=== PATIENT | female | born 1930 | race Caucasian/White ===

== ENCOUNTER → 2017-03-18 | Day surgery (SDC) | payer OTHER, MEDICARE ==
[2017-02-26 09:57] VITALS: Ht 160 cm; Wt 95.5 kg
[~2017-03-18] VITALS: Ht 160 cm; Wt 95.5 kg
[~2017-03-18] MED LIST: 500ML BSS 0.3ML EPI 1:1000PF IRRIG ONE; ACETAMINOPHEN 325 MG TAB PO PRN; AMIO200T4 PO; AMLO-110 PO; AMVISC PLUS 0.8ML SYRINGE INT OCU ONE; APR25 PO; ASPCH81X PO; ATOR-22 PO; ATRIN INH; ATROPINE SULFATE 0.1 MG/ML 5ML SYR IV PRN; CHOL100010 PO; DENO60SO INJ; EpHEDrine SULFATE INJ 50 MG/ML AMP IV PRN; EpINEphrine INJ 1MG/ML AMP 1 MG/ML AMP ONE; FERR1TAB13 PO; LACTATED RINGER'S 1000ML 500 ML IV SCH; LEVO50TA6 PO; LIDOCAINE 3.5% OPH GEL PER APPLICATION CHARGE ONE; LIDOCAINE HCL 1% MPF 2 ML VIAL ONE; LORA-741 PO; LPR50X PO; MIDAZOLAM HCL 1 MG/ML 2ML VIAL ONE; NITR0.4S UT; OCUCOAT 1 ML SOLN IO ONE; ONDANSETRON INJ 2 MG/ML 2 ML VIAL IV PRN; POTA10TA PO; POVIDONE-IODINE OP SOLN 30 ML BTL ONE; PRIM50TA29 PO; PRLSR20 PO; PROPARACAINE 0.5% OP SOLN PER DROP CHARGE OPL SCH; SLWMEC PO; TOBRAMYCIN/DEXAMETHASONE OPH OINT PER APPLN CHARGE ONE; TOLT1TAB17 PO; [UNRECOGNIZED DRUG - CODE] PO
[2017-03-18] MEDS: PHENYLEPHRINE HCL 2.5% OP SOLN PER DROP CHARGE OPL SCH ×2 (09:47→09:52)
[2017-03-18] MEDS: TROPICAMIDE 1% OP SOLN PER DROP CHARGE OPL SCH ×2 (09:48→09:53)
[2017-03-18] MEDS: CYCLOPENTOLATE HCL 1% OP SOLN PER DROP CHARGE OPL SCH ×2 (09:49→09:54)
[2017-03-18] MEDS: KETOROLAC 0.5% OP SOLN PER DROP CHARGE OPL SCH ×2 (09:50→09:55)
[2017-03-18] MEDS: GATIFLOXACIN OP SOLN PER DROP CHARGE OPL SCH ×2 (09:51→10:05)
--- NOTE | 2017-03-18 10:15 | History & Physical Bridge - [place] ---
H&P Re-Evaluation Bridge Note: I have examined the patient, reviewed the History & Physical and in the interval since the performance of the History & Physical I have noted the following changes of clinical significance: No changes noted
--- NOTE | 2017-03-18 10:44 | Discharge Instructions-SurgCtr ---
Discharge Instructions Date of Service Mar 18, 2017. Visit Reason for Visit: Cataract Left Eye Discharge Discharge Diagnosis / Problem: cataract Discharge Goals Goal(s): Improve function Activity Recommendations Activity Limitations: per Instructions/Follow-up section Anesthesia . Post Anesthesia Instructions: If you have had General Anesthesia or IV Sedation: * Do not drive today. * Resume driving when surgeon permits. * Do not make important decisions or sign legal documents today. * Call surgeon for: 1. Temperature elevations greater than 101 degrees F. 2. Uncontrollable pain. 3. Excessive bleeding. 4. Persistent nausea and vomiting. 5. Medication intolerance (nausea, vomiting or rash). * For nausea and vomiting use only clear liquids such as: tea, soda, bouillon until nausea subsides, then gradually increase diet as tolerated. * If you have any concerns or questions, call your surgeon's office. If physician is unavailable and it is an emergency, call 911 or go to the nearest emergency room. . Instructions / Follow-Up Instructions / Follow-Up ACTIVITY RECOMMENDATIONS: * No strenuous lifting, jogging or running for 4 days * No swimming or yard work for 1 week. * Limited bending is permitted, such as putting on shoes. RETURN TO SCHOOL/WORK: No work until seen by physician in office. MEDICATIONS: Resume previous medications unless instructed otherwise by your surgeon. This includes eye drops for glaucoma. Zymaxid/Gatifloxacin (guerrero cap) - one drop every 2 hours until bedtime Nevanac/Ilevro/Prolensa/Ketorolac (tamayo cap) - one drop every 4 hours until bedtime Prednisolone (white/pink cap, SHAKE WELL) - one drop every 2 hours until bedtime Starting tomorrow - all 3 drops every 4 hours until seen in the office Optive drops - as needed for discomfort SPECIAL CARE INSTRUCTIONS: * Wear eyeshield when sleeping, for four nights. * You may wear your own glasses or sunglasses while awake. * You may read or watch TV * You may shower and wash your face, but be gentle around the eye and pat dry. * Blurry vision and mild irritation are normal. * Call office if pain is more severe or vision becomes dark at . FOLLOW UP VISIT: Follow-up with Dr Campos tomorrow. Diet Recommendations Home Diet: resume previous diet Procedures Procedures Performed: Cataract Phacoemulsification With Intraocular Lens Implant Pending Studies Studies pending at discharge: no Medical Emergencies . Who to Call and When: Medical Emergencies: If at any time you feel your situation is an emergency, please call 911 immediately. . Non-Emergent Contact Non-Emergency issues call your: Car Shakeout Operator . . "Provider Documentation" section prepared by Corey Campos. .
--- NOTE | 2017-03-18 10:45 | [facility] Operative Report ---
Operative Report Date of Service Mar 18, 2017. Operative Report 1. PREOPERATIVE DIAGNOSIS: Cataract of the left eye. 2. POSTOPERATIVE DIAGNOSIS: Same. 3. PROCEDURE: Phacoemulsification with intraocular lens implantation of the left eye. SURGEON: Dr. Corey Campos. ANESTHESIA: Topical Lidocaine gel, 1% Non- Preserved intracameral Lidocaine, and monitored intravenous sedation. INDICATIONS FOR THE PROCEDURE: The patient is a 87 - year-old female with a history of cataract of the left eye causing significant visual impairment. The details of the proposed procedure were explained to the patient who asked appropriate questions and following discussion of all risks, benefits and alternatives agreed to have the procedure done. 4. OPERATION AND FINDINGS: DESCRIPTION OF PROCEDURE: After informed consent was obtained, the patient was brought to the Operating Room at the [facility]. The patient was placed in a supine position and then the left eye was prepped and draped in the usual sterile fashion for intraocular surgery. A drop of topical Lidocaine gel was placed in the operative eye. A wire lid speculum was then placed in the fornices. A corneal paracentesis was then created temporally. The Non-Preserved Lidocaine was then instilled into the anterior chamber. The anterior chamber was then pressurized with viscoelastic. A 2.0 mm clear corneal incision was then created temporally. A cystotome was inserted into the anterior chamber and used to create a tear in the anterior lens capsule. This capsular tear was then used to create a small flap and the flap was dragged in a counterclockwise direction in order to create a continuous curvilinear capsulorrhexis. Hydrodissection was accomplished with balanced salt solution. Phacoemulsification of the lens nucleus was then performed in a standard [id number] technique. The phaco time was 22 seconds with an average power of 12 %. The remaining cortical material was removed using irrigation aspiration. The capsular bag was then filled with viscoelastic. A Bausch & Lomb MI60L +21.5 diopters lens was then loaded into the injector and injected into the capsular bag. The remaining viscoelastic was removed with the irrigation aspiration handpiece. The wound was hydrated and then checked and found to be watertight. The intraocular pressure was checked and found to be adequate. The wire lid speculum was removed and the patient's face was cleaned and dried. TobraDex ointment was placed in the inferior fornix. The patient was discharged to the Recovery Room having tolerated the procedure well. There were no complications. The patient will be seen tomorrow in the office for follow-up. I attest to the content of the Intraoperative Record and any orders documented therein. Any exceptions are noted below.
[2017-03-18 10:48] VITALS: TEMP 36.4
[2017-03-18 10:58] VITALS: BP 156/69; PULSE 59; O2SAT 97
--- NOTE | 2017-03-18 11:13 | Anesthesia Progress Nt - [facility] ---
Anesthesia Post Op Note Date & Time Mar 18, 2017 at 11:12 Vital Signs Pain Intensity: 0 Vital Signs Past 12 Hours Date Time Temp Pulse Resp B/P (MAP) Pulse Ox O2 Delivery O2 Flow Rate FiO2 03/18/17 10:58 59 16 156/69 (98) 97 Room Air 03/18/17 10:48 36.4 56 16 145/62 (89) 99 Room Air 03/18/17 09:41 36.5 58 22 172/80 (110) 95 Room Air Notes Mental Status: alert / awake / arousable, participated in evaluation Pt Amnestic to Procedure: Yes Nausea / Vomiting: adequately controlled Pain: adequately controlled Airway Patency, RR, SpO2: stable & adequate BP & HR: stable & adequate Hydration State: stable & adequate Anesthetic Complications: no major complications apparent
== END | disposition home or self-care (01) ==
LOC: X.SURG 09:25
PROVIDERS: ATTEND Ophthalmology
DX: H26.9 Unspecified cataract (principal); N18.3 Chronic kidney disease, stage 3 (moderate); J45.30 Mild persistent asthma, uncomplicated; E55.9 Vitamin D deficiency, unspecified; E03.9 Hypothyroidism, unspecified; I10 Essential (primary) hypertension; M15.0 Primary generalized (osteo)arthritis

== ENCOUNTER → 2017-04-22 | Day surgery (SDC) | payer OTHER, MEDICARE ==
[2017-03-27 12:17] VITALS: Ht 160 cm; Wt 95.5 kg
[~2017-04-22] VITALS: Ht 160 cm; Wt 95.5 kg
[~2017-04-22] MED LIST changes: +BSS FLUSH ONE; -ONDANSETRON INJ 2 MG/ML 2 ML VIAL IV PRN; -PROPARACAINE 0.5% OP SOLN PER DROP CHARGE OPL SCH; +PROPARACAINE 0.5% OP SOLN PER DROP CHARGE OPR SCH; +TOLT1TAB PO; -TOLT1TAB17 PO
[2017-04-22] MEDS: PHENYLEPHRINE HCL 2.5% OP SOLN PER DROP CHARGE OPR SCH ×2 (07:15→07:20)
[2017-04-22] MEDS: TROPICAMIDE 1% OP SOLN PER DROP CHARGE OPR SCH ×2 (07:16→07:21)
[2017-04-22] MEDS: CYCLOPENTOLATE HCL 1% OP SOLN PER DROP CHARGE OPR SCH ×2 (07:17→07:22)
[2017-04-22] MEDS: KETOROLAC 0.5% OP SOLN PER DROP CHARGE OPR SCH ×2 (07:18→07:23)
[2017-04-22] MEDS: GATIFLOXACIN OP SOLN PER DROP CHARGE OPR SCH ×2 (07:19→07:29)
--- NOTE | 2017-04-22 08:07 | Discharge Instructions-SurgCtr ---
Discharge Instructions Date of Service Apr 22, 2017. Visit Reason for Visit: Right Cataract Discharge Discharge Diagnosis / Problem: cataract Discharge Goals Goal(s): Improve function Activity Recommendations Activity Limitations: per Instructions/Follow-up section Anesthesia . Post Anesthesia Instructions: If you have had General Anesthesia or IV Sedation: * Do not drive today. * Resume driving when surgeon permits. * Do not make important decisions or sign legal documents today. * Call surgeon for: 1. Temperature elevations greater than 101 degrees F. 2. Uncontrollable pain. 3. Excessive bleeding. 4. Persistent nausea and vomiting. 5. Medication intolerance (nausea, vomiting or rash). * For nausea and vomiting use only clear liquids such as: tea, soda, bouillon until nausea subsides, then gradually increase diet as tolerated. * If you have any concerns or questions, call your surgeon's office. If physician is unavailable and it is an emergency, call 911 or go to the nearest emergency room. . Instructions / Follow-Up Instructions / Follow-Up ACTIVITY RECOMMENDATIONS: * No strenuous lifting, jogging or running for 4 days * No swimming or yard work for 1 week. * Limited bending is permitted, such as putting on shoes. RETURN TO SCHOOL/WORK: No work until seen by physician in office. MEDICATIONS: Resume previous medications unless instructed otherwise by your surgeon. This includes eye drops for glaucoma. Zymaxid/Gatifloxacin (guerrero cap) - one drop every 2 hours until bedtime Nevanac/Ilevro/Prolensa/Ketorolac (tamayo cap) - one drop every 4 hours until bedtime Prednisolone/Durezol (white/pink cap, SHAKE WELL) - one drop every 2 hours until bedtime Starting tomorrow - all 3 drops every 4 hours until seen in the office Optive drops - as needed for discomfort SPECIAL CARE INSTRUCTIONS: * Wear eyeshield when sleeping, for four nights. * You may wear your own glasses or sunglasses while awake. * You may read or watch TV * You may shower and wash your face, but be gentle around the eye and pat dry. * Blurry vision and mild irritation are normal. * Call office if pain is more severe or vision becomes dark at . FOLLOW UP VISIT: Follow-up with Dr Campos tomorrow. Diet Recommendations Home Diet: resume previous diet Procedures Procedures Performed: Right Cataract Phacoemulsification With Intraocular Lens Implant Pending Studies Studies pending at discharge: no Medical Emergencies . Who to Call and When: Medical Emergencies: If at any time you feel your situation is an emergency, please call 911 immediately. . Non-Emergent Contact Non-Emergency issues call your: Meal Temperer . . "Provider Documentation" section prepared by Corey Campos. .
--- NOTE | 2017-04-22 08:07 | [facility] Operative Report ---
Operative Report Date of Service Apr 22, 2017. Operative Report 1. PREOPERATIVE DIAGNOSIS: Cataract of the right eye. 2. POSTOPERATIVE DIAGNOSIS: Same. 3. PROCEDURE: Phacoemulsification with intraocular lens implantation of the right eye. SURGEON: Dr. Corey Campos. ANESTHESIA: Topical Lidocaine gel, 1% Non- Preserved intracameral Lidocaine, and monitored intravenous sedation. INDICATIONS FOR THE PROCEDURE: The patient is a 87 - year-old female with a history of cataract of the right eye causing significant visual impairment. The details of the proposed procedure were explained to the patient who asked appropriate questions and following discussion of all risks, benefits and alternatives agreed to have the procedure done. 4. OPERATION AND FINDINGS: DESCRIPTION OF PROCEDURE: After informed consent was obtained, the patient was brought to the Operating Room at the [facility]. The patient was placed in a supine position and then the right eye was prepped and draped in the usual sterile fashion for intraocular surgery. A drop of topical Lidocaine gel was placed in the operative eye. A wire lid speculum was then placed in the fornices. A corneal paracentesis was then created temporally. The Non-Preserved Lidocaine was then instilled into the anterior chamber. The anterior chamber was then pressurized with viscoelastic. A 2.0 mm clear corneal incision was then created temporally. A cystotome was inserted into the anterior chamber and used to create a tear in the anterior lens capsule. This capsular tear was then used to create a small flap and the flap was dragged in a counterclockwise direction in order to create a continuous curvilinear capsulorrhexis. Hydrodissection was accomplished with balanced salt solution. Phacoemulsification of the lens nucleus was then performed in a standard [id number] technique. The phaco time was 26 seconds with an average power of 12 %. The remaining cortical material was removed using irrigation aspiration. The capsular bag was then filled with viscoelastic. A Bausch & Lomb MI60L +21.05 diopters lens was then loaded into the injector and injected into the capsular bag. The remaining viscoelastic was removed with the irrigation aspiration handpiece. The wound was hydrated and then checked and found to be watertight. The intraocular pressure was checked and found to be adequate. The wire lid speculum was removed and the patient's face was cleaned and dried. TobraDex ointment was placed in the inferior fornix. The patient was discharged to the Recovery Room having tolerated the procedure well. There were no complications. The patient will be seen tomorrow in the office for follow-up. I attest to the content of the Intraoperative Record and any orders documented therein. Any exceptions are noted below.
[2017-04-22 08:08] VITALS: TEMP 37
[2017-04-22 08:34] VITALS: BP 155/71; PULSE 55; O2SAT 96
--- NOTE | 2017-04-22 08:36 | Anesthesia Progress Nt - [facility] ---
Anesthesia Post Op Note Date & Time Apr 22, 2017 at 08:36 Vital Signs Pain Intensity: 0 Vital Signs Past 12 Hours Date Time Temp Pulse Resp B/P (MAP) Pulse Ox O2 Delivery O2 Flow Rate FiO2 04/22/17 08:34 55 18 155/71 (99) 96 Room Air 04/22/17 08:08 37.0 56 16 152/72 (98) 98 Room Air 04/22/17 07:07 36.9 62 20 168/78 (108) 95 Room Air Notes Mental Status: alert / awake / arousable, participated in evaluation Pt Amnestic to Procedure: Yes Nausea / Vomiting: adequately controlled Pain: adequately controlled Airway Patency, RR, SpO2: stable & adequate BP & HR: stable & adequate Hydration State: stable & adequate Anesthetic Complications: no major complications apparent
== END | disposition home or self-care (01) ==
LOC: X.SURG 06:45
PROVIDERS: ATTEND Ophthalmology
DX: H26.9 Unspecified cataract (principal); E03.9 Hypothyroidism, unspecified; I25.10 Atherosclerotic heart disease of native coronary artery without angina pectoris; N18.9 Chronic kidney disease, unspecified; I12.9 Hypertensive chronic kidney disease with stage 1 through stage 4 chronic kidney disease, or unspecified chronic kidney disease; Z98.61 Coronary angioplasty status

== ENCOUNTER 2017-10-07 12:36 | Observation (INO) | payer OTHER, MEDICARE ==
[~2017-10-07] VITALS: Ht 162.6 cm; Wt 95.4 kg
[~2017-10-07 12:36] MED LIST changes: -500ML BSS 0.3ML EPI 1:1000PF IRRIG ONE; -ACETAMINOPHEN 325 MG TAB PO PRN; -AMLO-110 PO; +AMLO5TAB3 PO; -AMVISC PLUS 0.8ML SYRINGE INT OCU ONE; -ATROPINE SULFATE 0.1 MG/ML 5ML SYR IV PRN; -BSS FLUSH ONE; -EpHEDrine SULFATE INJ 50 MG/ML AMP IV PRN; -EpINEphrine INJ 1MG/ML AMP 1 MG/ML AMP ONE; -LACTATED RINGER'S 1000ML 500 ML IV SCH; -LIDOCAINE 3.5% OPH GEL PER APPLICATION CHARGE ONE; -LIDOCAINE HCL 1% MPF 2 ML VIAL ONE; -MIDAZOLAM HCL 1 MG/ML 2ML VIAL ONE; -OCUCOAT 1 ML SOLN IO ONE; -POVIDONE-IODINE OP SOLN 30 ML BTL ONE; -PROPARACAINE 0.5% OP SOLN PER DROP CHARGE OPR SCH; -TOBRAMYCIN/DEXAMETHASONE OPH OINT PER APPLN CHARGE ONE; -TOLT1TAB PO; +TOLT1TAB17 PO
[2017-10-07] MEDS ORDERED: ONDANSETRON INJ 2 MG/ML 2 ML VIAL IV STA (12:56)
[2017-10-07] MEDS ORDERED: NITROGLYCERIN OINT 2% 1GM PACKET EXT STA (12:56)
[2017-10-07] MEDS ORDERED: ASPIRIN 81 MG CHEW PO STA (12:56)
--- NOTE | 2017-10-07 13:14 | EMERGENCY ROOM VISIT NOTE ---
History Report prepared by Satinder: Michelle Mayorga Under the Supervision of: Dr. Kiran Crane M.D. 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 She notes the pain radiates to her jaw. She notes the chest pressure is better when she sits up and worsens when she lies down. She currently rates her discomfort a 10/10 in severity. She notes nausea, dry heaving, vomiting, loss of appetite, and headache. She notes the nausea and dry heaving began two days ago. She notes vomiting last night. She notes a persistent headache for two weeks. She denies any fevers or shortness of breath. She has a history of PE, small bowel obstruction, and CAD. She used NTG yesterday with no relief. She currently takes baby aspirin daily. She notes she takes her medications regularly and on schedule. Source of History: patient Onset: two days FRUIT WORKER Position: chest Symptom Intensity: 10/10 Quality: pressure Timing: constant Modifying Factors (Worsening): other (lying down) Modifying Factors (Relieving): other (sits up) Associated Symptoms: + headache, + nausea, + vomiting, No fevers, No SOB Note: She notes dry heaving and loss of appetite. Review of Systems See HPI for pertinent positives & negatives. A total of 10 systems reviewed and were otherwise negative. Past Medical & Surgical Medical Problems: (1) Asthma (2) CAD S/P percutaneous coronary angioplasty (3) Gastroparesis (4) GERD (gastroesophageal reflux disease) (5) History of colonic diverticulitis (6) History of herpes zoster (7) Hormone replacement therapy (postmenopausal) (8) HTN (hypertension) (9) Irritable bowel syndrome (10) Osteoarthritis (11) Osteoporosis (12) Paroxysmal atrial fibrillation (13) Rotator cuff tear arthropathy Surgical Problems: (1) History of appendectomy (2) History of bowel resection (3) History of total left knee replacement (4) History of vein stripping (5) Hx of cholecystectomy (6) S/P oophorectomy (7) S/P rotator cuff repair (8) Status post coronary artery stent placement (9) Status post exploratory laparotomy Family History Cancer MOTHER (Stomach CA) SISTER (Lymphoma) FH: multiple sclerosis MOTHER Heart disease FATHER Social History Smoking Status: Never Smoker Alcohol Use: none Marital Status: Housing Status: lives alone Occupation Status: retired Current/Historical Medications Scheduled Amiodarone Hcl (Cordarone), 200 MG PO QAM Amlodipine (Norvasc), 5 MG PO QAM Aspirin (Aspirin Chewable), 81 MG PO QAM Atorvastatin (Lipitor), 20 MG PO QPM Cholecalciferol (Vitamin D), 2 TAB PO QAM Cyanocobalamin (Vitamin B-12), 1,000 MCG PO DAILY Denosumab (Prolia), 1 DOSE INJ [id number] Ferrous Sulfate (Kp Ferrous Sulfate), 1 TAB PO DAILY Hydralazine Hcl (Apresoline), 25 MG PO BID Ipratropium [place] (Atrovent Hfa), 2 PUFFS INH QID Levothyroxine Sodium (Synthroid), 75 MCG PO DAILY Lorazepam (Ativan), 0.5 MG PO BID Magnesium Chloride (Slow-Mag Tab), 64 MG PO QAM Metoprolol Tartrate (Metoprolol Tartrate), 1 TAB PO BID Nitroglycerin (Nitrostat), 0.4 MG UT PRN Omeprazole (Prilosec), 20 MG PO BID Primidone (Mysoline), 50 MG PO QAM Tolterodine Tartrate (Detrol), 1 MG PO BID Scheduled PRN Cholestyramine (Questran Light), 1 DOSE PO DAILY PRN for Constipation Hydrocodone/Acetaminophen 5MG/325MG ([place] 5MG/325MG), 1 TABLET PO Q8 PRN for Pain Tramadol (Ultram), 50 MG PO TID PRN for Pain Allergies Coded Allergies: Hydrochlorothiazide (Verified Allergy, Unknown, UNKNOWN, 10/07/17) Latex (Verified Allergy, Unknown, rash, red, 10/07/17) Nickel (Verified Allergy, Unknown, local skin irritation, 10/07/17) Physical Exam Vital Signs Date Time Temp Pulse Resp B/P (MAP) Pulse Ox O2 Delivery O2 Flow Rate FiO2 10/07/17 14:27 58 18 138/67 93 Room Air 10/07/17 13:16 97 Room Air 10/07/17 13:01 61 10/07/17 12:42 36.7 55 18 190/83 97 Room Air Physical Exam GENERAL: Patient is in no acute distress. HEENT: No acute trauma, normocephalic atraumatic, mucous membranes moist, no nasal congestion, no scleral icterus. NECK: No stridor, no adenopathy, no meningismus, trachea is midline. CHEST: Tender over sternal chest wall. LUNGS: Clear to auscultation bilaterally, no wheeze, no rhonchi, breath sounds equal. HEART: Mildly bradycardic, regular rhythm, and subtle systolic murmur. ABDOMEN: Soft, tender in epigastrium, bowel sounds positive, no hernias, no peritonitis. EXTREMITIES: No cyanosis or edema, full range of motion of all the joints without pain or difficulty, no signs for acute trauma. NEUROLOGIC: Oriented x 3, no acute motor or sensory deficits, no focal weakness. SKIN: No rash, no jaundice, no diaphoresis. Medical Decision & Procedures ER Provider Diagnostic Interpretation: Radiology results as stated below per my review and radiologist interpretation: CHEST ONE VIEW PORTABLE CLINICAL HISTORY: CHEST PAIN dyspnea COMPARISON STUDY: 11/01/2015 FINDINGS: Mild stable cardiomegaly. Chronic colonic atelectasis both lung bases. Potential subsegmental atelectasis left lung base. Lungs otherwise appear clear. Postoperative changes right shoulder considered stable. IMPRESSION: Subsegmental atelectasis left base. Chronic change. Chest CT: IMPRESSION: 1. No acute pulmonary emboli. Small chronic pulmonary embolus within a segmental branch to the lingula which was present on CT of November 01, 2015. 2. No acute intrathoracic findings. 3. Moderate cardiomegaly and extensive coronary artery calcification. 4. Moderate sized hiatal hernia. The above report was generated using voice recognition software. It may contain grammatical, syntax or spelling errors. Electronically signed by: Marc Warren M.D. 10/07/2017 1:26 PM Dictated Date/Time: 10/07/2017 1:26 PM ABDOMINAL ULTRASOUND, RIGHT UPPER QUADRANT HISTORY: Epigastric abdominal pain.. COMPARISON: Abdomen and pelvis CT 11/01/2015. FINDINGS: Pancreas: The pancreatic tail is obscured by overlying bowel gas. The remaining portions of the pancreas are within normal limits. Liver: There are 2 cysts within the left hepatic lobe the largest measuring 1.4 cm. These remain unchanged. Gallbladder: The gallbladder is surgically absent. CBD: 7 mm. This is within normal limits. Right kidney: No hydronephrosis. IMPRESSION: No significant abnormality identified within the right upper quadrant. Prior cholecystectomy. Electronically signed by: Ezio Mahajan M.D. 10/07/2017 2:13 PM Dictated Date/Time: 10/07/2017 2:07 PM Laboratory Results 10/07/17 13:25 10/07/17 13:25 Test 10/07/17 13:25 Red Blood Count 4.13 M/uL (4.2-5.4) Mean Corpuscular Volume 96.6 fL (80-100) Mean Corpuscular Hemoglobin 31.5 pg (25-34) Mean Corpuscular Hemoglobin Concent 32.6 g/dl (32-36) RDW Standard Deviation 53.5 fL (36.4-46.3) RDW Coefficient of Variation 15.2 % (11.5-14.5) Mean Platelet Volume 11.8 fL (7.4-10.4) Prothrombin Time 10.4 SECONDS (9.0-12.0) Prothromb Time International Ratio 1.0 (0.9-1.1) Activated Partial Thromboplast Time 25.8 SECONDS (21.0-31.0) Partial Thromboplastin Ratio 1.0 Anion Gap 4.0 mmol/L (3-11) Est Creatinine Clear Calc Drug Dose 50.0 ml/min Estimated GFR () 65.0 Estimated GFR (Non- 56.0 BUN/Creatinine Ratio 15.9 (10-20) Calcium Level 8.8 mg/dl (8.5-10.1) Total Bilirubin 0.4 mg/dl (0.2-1) Aspartate Amino Transf (AST/SGOT) 26 U/L (15-37) Alanine Aminotransferase (ALT/SGPT) 30 U/L (12-78) Alkaline Phosphatase 97 U/L (45-117) Troponin I < 0.015 ng/ml (0-0.045) Total Protein 7.4 gm/dl (6.4-8.2) Albumin 3.3 gm/dl (3.4-5.0) Globulin 4.1 gm/dl (2.5-4.0) Albumin/Globulin Ratio 0.8 (0.9-2) Lipase 100 U/L (73-393) Laboratory results reviewed by me. Medications Administered Medications (Trade) Dose Ordered Sig/Brdaley Route Start Time Stop Time Status Last Admin Dose Admin Ondansetron HCl (Zofran Inj) 4 mg NOW STAT IV 10/07/17 12:56 10/07/17 13:06 DC 10/07/17 13:26 4 MG Nitroglycerin (Nitroglycerin 2% Oint) 1 inch NOW STAT EXT 10/07/17 12:56 10/07/17 13:06 DC 10/07/17 13:26 1 INCH Aspirin (Aspirin Chew) 324 mg NOW STAT PO 10/07/17 12:56 10/07/17 13:06 DC 10/07/17 13:26 324 MG ECG Indication: chest pain Rate (beats per minute): 59 Rhythm: sinus bradycardia Findings: no acute ischemic change, no ectopy, other (LVH) ED Course 1256: The patient was evaluated in room C11B. A complete history and physical exam was performed. 1256: Ordered Aspirin 324 mg PO, Nitroglycerin 1 inch SL, and Zofran 4 mg IV 1420: I reassessed the patient at this time. She is feeling better and resting comfortably. 1628: I spoke with the patient and family. The on-call hospitalist was consulted. Medical Decision The patient is a 87 year old female who presents to the ED with complaints of chest pressure. Differential diagnoses considered include cardiac ischemia, pancreatitis, gall bladder disease, PNX, PNA aortic dissection, PE, and UT. There is no leukocytosis or concerning anemia. No significant electrolyte abnormality, kidney failure, hepatitis or pancreatitis. There is no coagulopathy. Chest x-ray shows no mediastinal widening or pneumothorax, there is no pneumonia. There was some atelectasis at the left base. EKG shows a sinus bradycardia with LVH, no acute ischemia. Cardiac enzyme testing times one is not consistent with acute cardiac injury. Gallbladder ultrasound does not show evidence for gallstones or acute cholecystitis. Chest CT shows a chronic PE, no acute PE, there is a hiatal hernia noted, no evidence for aortic dissection. The patient received Nitropaste, IV saline, IV Zofran and oral aspirin. She is feeling markedly improved. The patient presents with chest pressure and pain going to the jaw and into her back. She is improved with nitroglycerin and aspirin. I think a hospital stay for further cardiac workup is warranted. I did speak to the patient and case management. The on-call hospitalist was consulted. Of note, some of the patient's pain may be musculoskeletal as it does seem somewhat reproducible. One would not expect her reproducible pain to improve though with nitroglycerin and aspirin. Medication Reconcilliation Current Medication List: was personally reviewed by me Blood Pressure Screening Patient's blood pressure: Elevated blood pressure Blood pressure disposition: Referred to PCP Impression Primary Impression: Precordial chest pain Scribe Attestation The scribe's documentation has been prepared under my direction and personally reviewed by me in its entirety. I confirm that the note above accurately reflects all work, treatment, procedures, and medical decision making performed by me. Departure Information Dispostion Being Evaluated By Hospitalist Referrals Marc Hoang M.D. (PCP) Patient Instructions My [facility]
--- NOTE | 2017-10-07 13:28 | DIAGNOSTIC IMAGING REPORT ---
CHEST ONE VIEW PORTABLE CLINICAL HISTORY: CHEST PAIN dyspnea COMPARISON STUDY: 11/01/2015 FINDINGS: Mild stable cardiomegaly. Chronic colonic atelectasis both lung bases. Potential subsegmental atelectasis left lung base. Lungs otherwise appear clear. Postoperative changes right shoulder considered stable. IMPRESSION: Subsegmental atelectasis left base. Chronic change. The above report was generated using voice recognition software. It may contain grammatical, syntax or spelling errors. Electronically signed by: Marc Warren M.D. 10/07/2017 1:26 PM Dictated Date/Time: 10/07/2017 1:26 PM
[2017-10-07] MEDS ORDERED: LEVO75TA PO (13:50)
[2017-10-07] MEDS ORDERED: TRAM-10 PO (13:50)
[2017-10-07] MEDS ORDERED: HYDR-5688 PO (13:50)
[2017-10-07] MEDS ORDERED: CYAN10005 PO (13:50)
[2017-10-07 14:11] LABS: PTT PATIENT 25.8 SECONDS (21.0-31.0)
--- NOTE | 2017-10-07 14:15 | DIAGNOSTIC IMAGING REPORT ---
ABDOMINAL ULTRASOUND, RIGHT UPPER QUADRANT HISTORY: Epigastric abdominal pain.. COMPARISON: Abdomen and pelvis CT 11/01/2015. FINDINGS: Pancreas: The pancreatic tail is obscured by overlying bowel gas. The remaining portions of the pancreas are within normal limits. Liver: There are 2 cysts within the left hepatic lobe the largest measuring 1.4 cm. These remain unchanged. Gallbladder: The gallbladder is surgically absent. CBD: 7 mm. This is within normal limits. Right kidney: No hydronephrosis. IMPRESSION: No significant abnormality identified within the right upper quadrant. Prior cholecystectomy. Electronically signed by: Ezio Mahajan M.D. 10/07/2017 2:13 PM Dictated Date/Time: 10/07/2017 2:07 PM
[2017-10-07 14:21] LABS: HEMATOCRIT 39.9 % (37-47); MEAN CELL VOLUME 96.6 fL (80-100); MEAN CORPUSCULAR HEMOGLOBIN 31.5 pg (25-34); MEAN CORPUSCULAR HGB CONC 32.6 g/dl (32-36); MEAN PLATELET VOLUME 11.8 fL (7.4-10.4); PLATELET COUNT 215 K/uL (130-400); RED CELL DISTRIBUTION WIDTH CV 15.2 % (11.5-14.5); RED CELL DISTRIBUTION WIDTH SD 53.5 fL (36.4-46.3); WHITE BLOOD COUNT 4.82 K/uL (4.8-10.8)
[2017-10-07 14:22] LABS: ALBUMIN 3.3 gm/dl (3.4-5.0); ALT/SGPT 30 U/L (12-78); AST/SGOT 26 U/L (15-37); BLOOD UREA NITROGEN 15 mg/dl (7-18); CALCIUM 8.8 mg/dl (8.5-10.1); CARBON DIOXIDE 27 mmol/L (21-32); CREATININE 0.93 mg/dl (0.60-1.20); GLUCOSE 97 mg/dl (70-99); LIPASE 100 U/L (73-393); POTASSIUM 4.2 mmol/L (3.5-5.1); SODIUM 137 mmol/L (136-145)
[2017-10-07 14:27] LABS: ALKALINE PHOSPHATASE 97 U/L (45-117); TOTAL PROTEIN 7.4 gm/dl (6.4-8.2)
[2017-10-07] MEDS ORDERED: OPTIRAY 320 IV PRN (14:45)
--- NOTE | 2017-10-07 16:21 | DIAGNOSTIC IMAGING REPORT ---
CT ANGIOGRAPHY OF THE CHEST, PULMONARY EMBOLUS PROTOCOL CLINICAL HISTORY: Chest pain. COMPARISON STUDY: Chest CT November 01, 2015 and chest radiograph October 07, 2017. TECHNIQUE: Following IV administration of 92 mL of [id number]-320, helical axial images of the chest were obtained utilizing the pulmonary embolus protocol. Maximal intensity projections and sagittal and coronal reformats were viewed on an independent 3D workstation. IV contrast was administered without complication. A dose lowering technique was utilized adhering to the principles of ALARA. CT DOSE: 378.97 mGy.cm FINDINGS: There is a linear filling defect within a segmental branch to the lingula. In retrospect, this was present on exam of November 01, 2015. This suggests a small chronic pulmonary embolus. No additional pulmonary emboli are identified. The heart is moderately enlarged. There is extensive coronary artery calcification. There is no pericardial effusion. No enlarged thoracic lymph nodes are present. Central airways are patent. There is no consolidation to suggest pneumonia. Lower lobe, right middle lobe and lingular opacity suggest atelectasis. There is no pneumothorax or pleural effusion. There are no suspicious pulmonary nodules. Calcified granuloma within the right lower lobe. IMPRESSION: 1. No acute pulmonary emboli. Small chronic pulmonary embolus within a segmental branch to the lingula which was present on CT of November 01, 2015. 2. No acute intrathoracic findings. 3. Moderate cardiomegaly and extensive coronary artery calcification. 4. Moderate sized hiatal hernia. Electronically signed by: Igor Porras M.D. 10/07/2017 4:19 PM Dictated Date/Time: 10/07/2017 4:09 PM
[2017-10-07] MEDS ORDERED: ACETAMINOPHEN 325 MG TAB PO PRN (17:15)
[2017-10-07] MEDS ORDERED: ONDANSETRON INJ 2 MG/ML 2 ML VIAL IV PRN (17:15)
[2017-10-07 17:34] VITALS: O2SAT 93; Ht 162.6 cm; Wt 95.4 kg
--- NOTE | 2017-10-07 17:34 | NUR ---
A/ID: 87 year old female in ED. c/o pain between shoulder blades-03/22. To be medicated in ED, RN notified of pain. Possible admission/observation. Patient history of angio/stent. Admission Assessment done. Code Word/Fall Agreement reviewed with patient and daughter, and completed. Continued care in ED by BHARGAV Link.
[2017-10-07] MEDS ORDERED: CHOL4POW11 PO (17:38)
[2017-10-07] MEDS ORDERED: ALUMINUM/MAGNESIUM/SIMETH (MAALOX MAX) 30 ML UDC PO PRN (17:45)
--- NOTE | 2017-10-07 17:55 | History and Physical ---
History & Physical Date & Time of Service: Oct 07, 2017 at 17:49 Chief Complaint: Chest Pain;Headache Primary Care Physician: Marc Hoang M.D. History of Present Illness Source: patient, family (daughter at bedside), clinic records, hospital records This is a 87yo F with a PMH of HTN, CAD (s/p 2 stent in 2013), paroxysmal A fib , h/o DVT (IVC filter in place), HTN, HLD, diaphragmatic hernia and other problems listed below who presents with persistent chest pain x 3 days. Patient was in normal state of health until Friday night, when she had a few bouts of dry heaves. On Friday, she endorses sudden 10/10 central chest pain with radiation to her back. Pain is sharp, constant and worse with exertion. Endorses radiation to jaw. Has been taking ntg at home with some relief. Denies diaphoresis, nausea, vomiting or SOB. Follows with Dr. Gregory for CAD, paroxysmal A fib, HTN HLD and h/o DVT. Was previously on coumadin but was discontinued 2/2 recurrent bouts of hematochezia during an admission to [facility] in 2014. Most recent echo from 2013 with normal size left ventricle, estimated EF of 50-55%. In addition to CP, patient endorses a frontal headache for the last 2 weeks. Denies a history of headaches. Denies fever, chills, visual changes, URI symptoms, palpitations, SOB, abd pain, nausea, vomiting or LE swelling. Past Medical/Surgical History Medical Problems: (1) Asthma Status: Chronic (2) CAD S/P percutaneous coronary angioplasty Permanent Comment: cath 09/2014 - multivessel disease s/p Bare metal stent of circumflex and RCA 09/30/14 Status: Chronic (3) CKD (chronic kidney disease), stage III Status: Chronic (4) Gastroparesis Status: Chronic (5) GERD (gastroesophageal reflux disease) Status: Chronic (6) H/O deep venous thrombosis Permanent Comment: IVC filter placed in 2016 Status: Chronic (7) History of colonic diverticulitis Status: Chronic (8) History of herpes zoster Status: Chronic (9) Hormone replacement therapy (postmenopausal) Status: Chronic (10) HTN (hypertension) Status: Chronic (11) Hypothyroidism Status: Chronic (12) Irritable bowel syndrome Status: Chronic (13) Osteoarthritis Status: Chronic (14) Osteoporosis Status: Chronic (15) Paroxysmal atrial fibrillation Status: Chronic Surgical Problems: (1) History of appendectomy Status: Chronic (2) History of bowel resection Permanent Comment: diverticular disease + incarcerated hernia Status: Chronic (3) History of total left knee replacement Status: Chronic (4) History of vein stripping Status: Chronic (5) Hx of cholecystectomy Status: Chronic (6) S/P oophorectomy Permanent Comment: right Status: Chronic (7) S/P rotator cuff repair Permanent Comment: right Status: Chronic (8) Status post coronary artery stent placement Status: Chronic (9) Status post exploratory laparotomy Permanent Comment: Dr. Carreon 10/07/15 for bowel obstruction + ischemic bowel lysis of adhesions, small bowel resection, primary side-side anastomosis Status: Chronic Family History Cancer MOTHER (Stomach CA) SISTER (Lymphoma) FH: multiple sclerosis MOTHER Heart disease FATHER Social History Smoking Status: Never Smoker Alcohol Use: none Marital Status: Housing status: lives alone Occupational Status: retired Immunizations History of Influenza Vaccine: Yes Influenza Vaccine Date: Jul 10, 2015 History of Tetanus Vaccine?: Yes Tetanus Immunization Date: Dec 09, 2013 History of Pneumococcal: Yes Pneumococcal Date: Jan 11, 1998 History of Hepatitis B Vaccine: No Multi-Drug Resistant Organisms History of MDRO: No Allergies Coded Allergies: Hydrochlorothiazide (Verified Allergy, Unknown, UNKNOWN, 10/07/17) Latex (Verified Allergy, Unknown, rash, red, 10/07/17) Nickel (Verified Allergy, Unknown, local skin irritation, 10/07/17) Home Medications Scheduled Amiodarone Hcl (Cordarone), 200 MG PO QAM Amlodipine (Norvasc), 5 MG PO QAM Aspirin (Aspirin Chewable), 81 MG PO QAM Atorvastatin (Lipitor), 20 MG PO QPM Cholecalciferol (Vitamin D), 2 TAB PO QAM Cholestyramine (Questran), 1 PKT PO before meals Cyanocobalamin (Vitamin B-12), 1,000 MCG PO DAILY Denosumab (Prolia), 1 DOSE INJ [id number] Ferrous Sulfate (Kp Ferrous Sulfate), 1 TAB PO DAILY Hydralazine Hcl (Apresoline), 25 MG PO BID Ipratropium Wasta (Atrovent Hfa), 2 PUFFS INH QID Levothyroxine Sodium (Synthroid), 75 MCG PO DAILY Lorazepam (Ativan), 0.5 MG PO BID Magnesium Chloride (Slow-Mag Tab), 64 MG PO QAM Metoprolol Tartrate (Metoprolol Tartrate), 1 TAB PO BID Nitroglycerin (Nitrostat), 0.4 MG UT PRN Omeprazole (Prilosec), 20 MG PO BID Primidone (Mysoline), 50 MG PO QAM Tolterodine Tartrate (Detrol), 1 MG PO BID Scheduled PRN Tramadol (Ultram), 50 MG PO TID PRN for Pain Review of Systems Ten systems reviewed and negative except as noted in the HPI. Physical Exam Vital Signs Date Time Temp Pulse Resp B/P (MAP) Pulse Ox O2 Delivery O2 Flow Rate FiO2 10/07/17 14:27 58 18 138/67 93 Room Air 10/07/17 13:16 97 Room Air 10/07/17 13:01 61 10/07/17 12:42 36.7 55 18 190/83 97 Room Air General Appearance: no apparent distress, + obese Head: normocephalic, atraumatic Eyes: normal inspection, PERRL, sclerae normal ENT: normal ENT inspection, hearing grossly normal, pharynx normal (moist mucous membranes) Neck: supple, no JVD, trachea midline Respiratory/Chest: lungs clear, normal breath sounds, no respiratory distress, no accessory muscle use, + pertinent finding (Chest wall tenderness) Cardiovascular: regular rate, rhythm, no murmur, normal peripheral pulses Abdomen/GI: soft, no organomegaly, + tenderness (epigastric tenderness ) Back: normal inspection Extremities/Musculoskelatal: normal inspection, no calf tenderness, no pedal edema Neurologic/Psych: no motor/sensory deficits, alert, normal mood/affect, oriented x 3 Skin: normal color, warm/dry Diagnostics Laboratory Results Results Past 24 Hours Test 10/07/17 13:25 Range/Units White Blood Count 4.82 4.8-10.8 K/uL Red Blood Count 4.13 4.2-5.4 M/uL Hemoglobin 13.0 12.0-16.0 g/dL Hematocrit 39.9 37-47 % Mean Corpuscular Volume 96.6 80-100 fL Mean Corpuscular Hemoglobin 31.5 25-34 pg Mean Corpuscular Hemoglobin Concent 32.6 32-36 g/dl RDW Standard Deviation 53.5 36.4-46.3 fL RDW Coefficient of Variation 15.2 11.5-14.5 % Platelet Count 215 130-400 K/uL Mean Platelet Volume 11.8 7.4-10.4 fL Prothrombin Time 10.4 9.0-12.0 SECONDS Prothromb Time International Ratio 1.0 0.9-1.1 Activated Partial Thromboplast Time 25.8 21.0-31.0 SECONDS Partial Thromboplastin Ratio 1.0 Sodium Level 137 136-145 mmol/L Potassium Level 4.2 3.5-5.1 mmol/L Chloride Level 106 98-107 mmol/L Carbon Dioxide Level 27 21-32 mmol/L Anion Gap 4.0 3-11 mmol/L Blood Urea Nitrogen 15 7-18 mg/dl Creatinine 0.93 0.60-1.20 mg/dl Est Creatinine Clear Calc Drug Dose 50.0 ml/min Estimated GFR () 65.0 Estimated GFR (Non- 56.0 BUN/Creatinine Ratio 15.9 10-20 Random Glucose 97 70-99 mg/dl Calcium Level 8.8 8.5-10.1 mg/dl Total Bilirubin 0.4 0.2-1 mg/dl Aspartate Amino Transf (AST/SGOT) 26 15-37 U/L Alanine Aminotransferase (ALT/SGPT) 30 12-78 U/L Alkaline Phosphatase 97 45-117 U/L Troponin I < 0.015 0-0.045 ng/ml Total Protein 7.4 6.4-8.2 gm/dl Albumin 3.3 3.4-5.0 gm/dl Globulin 4.1 2.5-4.0 gm/dl Albumin/Globulin Ratio 0.8 0.9-2 Lipase 100 73-393 U/L Diagnostic Radiology Chest/thorax CTA: IMPRESSION: 1. No acute pulmonary emboli. Small chronic pulmonary embolus within a segmental branch to the lingula which was present on CT of November 01, 2015. 2. No acute intrathoracic findings. 3. Moderate cardiomegaly and extensive coronary artery calcification. 4. Moderate sized hiatal hernia. Gall bladder ultrasound: IMPRESSION: No significant abnormality identified within the right upper quadrant. Prior cholecystectomy. CXR: IMPRESSION: Subsegmental atelectasis left base. Chronic change. EKG Sinus rhythm with first degree AV block Non-specific ST abnormality No significant change from previous EKGs No change from prior EKG Impression Assessment and Plan This is a 87yo F with a PMH of HTN, CAD (s/p 2 stent in 2013), paroxysmal A fib , h/o DVT (IVC filter in place), HTN, HLD, diaphragmatic hernia and other problems listed below who presents with persistent chest pain x 3 days. Atypical chest pain: -Chest wall & epigastric tenderness -Constant, radiating to back -R/o ACS; risk factors include CAD (s/p 2 stents), HTN, HLD -Received full dose aspirin in ED -Initial troponin negative -EKG- with no acute ischemic changes -CXR-moderate cardiomegaly, coronary calcifications -Chest/thorax CTA with no acute PE -Trend serial cardiac enzymes -If remain negative, will plan for dobutamine stress test in AM -NPO after midnight -Check echo -Repeat EKG in am -Consult cardiology Headache: -Intermittent frontal BOURNE x 2 weeks -CT head without contrast-negative for any acute events Epigastric discomfort/GERD: -GI cocktail given -Cont home dose PPI Paroxysmal A fib: -EKG in sinus rhythm -Formerly on coumadin; discontinued 2/2 hematemesis -Cont home dose amiodarone, metoprolol H/o DVT: -S/p IVC filter placement in 2015 HTN: -Normotensive -Cont home dose amlodipine, hydralazine, metoprolol HLD: -Cont statin Hypothyroidism: -Cont levothyroxine Chronic lower back pain: -Cont home dose tramadol per out-patient pain agreement Osteoporosis: -Cont Vit D, H/o asthma: -Stable, no SOB -Cont inhalers DVT Ppx: Heparin SQ Code status: DNR per living will and discussion with patient PCP: Viktor Dispo: Discharge planning ordered (patient >80 and lives alone) Patient seen in collaboration with Dr. Hensley. Please see addendum. Attending Addendum: The patient was seen and examined Epigastric.lower central CP for the last 2 days and severe bifrontal headache No other associated symptoms Has hiatal hernia and GERD O/E In moderate pain at rest Chest-clear Heart-regular Abdomen-tender epigastrium Legs -trace edema bilaterally [employer]-no acute focal neuro deficit Labs and Imaging studies were reviewed Atypical CP with H/O CAD -Doubt any ACS Cardiology Evaluation May be secondary to Gastritis Agree with the assessment and plan. Dr Ilya Hensley Level of Care Telemetry Resuscitation Status DO NOT RESUSCITATE VTE Prophylaxis VTE Risk Assessment Done? Y/N: Yes Risk Level: High Given or contraindicated: Unfractionated heparin SQ Social Service Consult >80 yr.& Lives Alone
[2017-10-07] MEDS ORDERED: TRAMADOL HCL 50 MG TAB PO PRN (18:30)
[2017-10-07] MEDS ORDERED: TRAMADOL HCL 50 MG TAB ONE (18:35)
--- NOTE | 2017-10-07 19:00 | NUR ---
A/OBS: Patient arrived to room 289-2 at this time from the ED. Patient with nitro paste to left chest, denies any c/o chest pain at this time. Patient does note intermittent headache across forehead and posterior head. Saline lock x2 to right hand, right FA. Lungs clear on RA. Patient ambulating independently. Monitor leads applied, sinus marquis on the monitor. VSS. Will continue to monitor.
[2017-10-07 19:08] VITALS: BP 146/81; PULSE 58; TEMP 36.7; O2SAT 94
--- NOTE | 2017-10-07 19:45 | NUR ---
OBS: Patient off floor at this time for CT head.
[2017-10-07 20:00] VITALS: O2SAT 94
[2017-10-07] MEDS: NITROGLYCERIN 2% OINTMENT 30GM TUBE EXT SCH (20:00)
[2017-10-07 20:12] LABS: CKMB 1.1 ng/ml (0.5-3.6)
--- NOTE | 2017-10-07 20:13 | NUR ---
OBS: Patient returned to floor from CT at this time.
--- NOTE | 2017-10-07 20:30 | DIAGNOSTIC IMAGING REPORT ---
CT OF THE HEAD WITHOUT CONTRAST CLINICAL HISTORY: Severe headache. COMPARISON STUDY: Head CT August 04, 2015. CT DOSE: 537.48 mGy.cm TECHNIQUE: Helical axial images of the head were obtained without IV contrast. Automated exposure control was utilized for the study. A dose lowering technique was utilized adhering to the principles of ALARA. FINDINGS: No acute intracranial hemorrhage, midline shift or mass effect is present. Ventricular system is stable. Basilar cisterns are patent. No extra axial collections are present. White matter hypodensities likely reflect small vessel disease. There are no findings to suggest acute dural sinus thrombosis or acute territorial infarct. Intravascular contrast from recent contrast-enhanced CT is incidentally noted. There are no significant calvarial abnormalities. IMPRESSION: No acute intracranial findings. Electronically signed by: Igor Porras M.D. 10/07/2017 8:29 PM Dictated Date/Time: 10/07/2017 8:27 PM
[2017-10-07] MEDS: HEPARIN SOD 5000 UNIT/0.5 ML CARP SQ SCH (20:51)
[2017-10-07] MEDS: IPRATROPIUM BROMIDE HFA INHALER INH SCH (20:55)
[2017-10-07] MEDS: LORAZEPAM 0.5 MG TAB PO SCH (20:55)
[2017-10-07] MEDS ORDERED: ATORVASTATIN 20 MG TAB PO SCH (21:00)
[2017-10-07] MEDS: METOPROLOL TARTRATE 50 MG TAB PO SCH (21:03)
[2017-10-07] MEDS: PANTOprazole SOD 40 MG TAB PO SCH (21:03)
[2017-10-07] MEDS ORDERED: IV FLUIDS COMPLETED PRN (21:30)
[2017-10-07] MEDS: TOLTERODINE TARTRATE 1 MG TAB PO SCH (22:24)
[2017-10-08] VITALS (7 sets, daily range): BP systolic 110–165; BP diastolic 45–78; PULSE 56–64; TEMP 36.8–36.9; O2SAT 91–95
--- NOTE | 2017-10-08 | NUR ---
A: Patient resting in bed. A&O x4. VSS on room air. SB on monitor. Patient denies chest pain at this time. Denies SOB. NPO p MN for stress test in AM. Troponin negative at this point. Independent to BR. LT UA Nitro paste. Instructed to ring for assistance, will continue to monitor.
[2017-10-08] MEDS: NITROGLYCERIN 2% OINTMENT 30GM TUBE EXT SCH ×3 (02:07→14:02)
[2017-10-08 02:16] LABS: CKMB 0.9 ng/ml (0.5-3.6)
--- NOTE | 2017-10-08 04:00 | NUR ---
A: Patient resting in bed with no complaints. A&O x4. VSS on room air. SB on monitor. Denies chest pain at this time. Assessment unchanged from previous. Will continue to monitor.
[2017-10-08 05:58] LABS: HEMATOCRIT 36.2 % (37-47); HEMOGLOBIN 11.9 g/dL (12.0-16.0); MEAN CELL VOLUME 96.5 fL (80-100); MEAN CORPUSCULAR HEMOGLOBIN 31.7 pg (25-34); MEAN CORPUSCULAR HGB CONC 32.9 g/dl (32-36); MEAN PLATELET VOLUME 11.4 fL (7.4-10.4); PLATELET COUNT 189 K/uL (130-400); RED CELL DISTRIBUTION WIDTH CV 15.1 % (11.5-14.5); RED CELL DISTRIBUTION WIDTH SD 53.4 fL (36.4-46.3); WHITE BLOOD COUNT 5.14 K/uL (4.8-10.8)
[2017-10-08 06:08] LABS: PTT PATIENT 25.5 SECONDS (21.0-31.0)
[2017-10-08] MEDS: HEPARIN SOD 5000 UNIT/0.5 ML CARP SQ SCH ×2 (06:11→14:00)
[2017-10-08] MEDS ORDERED: LEVOTHYROXINE 75 MCG TAB PO SCH (06:30)
[2017-10-08 06:32] LABS: CALCIUM 8.3 mg/dl (8.5-10.1); CREATININE 0.91 mg/dl (0.60-1.20); POTASSIUM 4.2 mmol/L (3.5-5.1)
--- NOTE | 2017-10-08 08:00 | NUR ---
A: PT IS A&OX4. VSS ON RA. DENIES CHEST PAIN AND SOB. PT IS OOB INDEPENDENTLY. PT IS NSR ON MONITOR. SALINE LOCKED. NPO EXCEPT MEDS. PT IS RESTING IN BED AT THIS TIME. Q1H ROUNDING. CALL CRISTOBAL WITHIN REACH. WILL CONTINUE TO MONITOR.
[2017-10-08] MEDS: LORAZEPAM 0.5 MG TAB PO SCH (08:17)
[2017-10-08] MEDS: PANTOprazole SOD 40 MG TAB PO SCH (08:18)
[2017-10-08] MEDS ORDERED: ASPIRIN 81 MG ECTAB PO SCH (09:00)
[2017-10-08] MEDS ORDERED: PRIMIDONE 50 MG TAB PO SCH (09:00)
[2017-10-08] MEDS ORDERED: AMLODIPINE BESYLATE 5 MG TAB PO SCH (09:00)
[2017-10-08] MEDS ORDERED: MAGNESIUM CHLORIDE 64MG DELAYED REL TAB PO SCH (09:00)
[2017-10-08] MEDS ORDERED: CHOLECALCIFEROL 1000 INTER.UNIT TAB PO SCH (09:00)
[2017-10-08] MEDS ORDERED: FERROUS SULFATE 325 MG TAB PO SCH (09:00)
[2017-10-08] MEDS ORDERED: AMIODARONE 200 MG TAB PO SCH (09:00)
[2017-10-08] MEDS ORDERED: CYANOCOBALAMIN 500 MCG TAB (VIT B-12) PO SCH (09:00)
[2017-10-08] MEDS: METOPROLOL TARTRATE 50 MG TAB PO SCH (10:51)
[2017-10-08] MEDS: TOLTERODINE TARTRATE 1 MG TAB PO SCH (10:51)
[2017-10-08] MEDS: IPRATROPIUM BROMIDE HFA INHALER INH SCH ×2 (10:52→14:02)
--- NOTE | 2017-10-08 11:08 | CARDIOLOGY CONSULTATION ---
DATE OF CONSULTATION: 10/08/2017 DATE OF CONSULTATION: 10/08/2017 REASON FOR CONSULTATION: Chest pain. HISTORY OF PRESENT ILLNESS: This is an 87-year-old female who usually follows with Dr. Gregory through our cardiology clinic. She has a history of coronary artery disease and in 2013 received bare metal stents within the right coronary and left circumflex arteries. She also has a history of highly symptomatic paroxysmal atrial fibrillation which has been controlled on amiodarone. She has a history of significant hematochezia and is not a candidate for long-term anticoagulation. She also has no history of a hiatal hernia with reflux and in the past has been told that she is not a candidate for any type of surgery for her hiatal hernia. On Friday, she had dry heaves and nausea with it. She also started to have an occipital area headache. Following the dry heaves she had chest pressure and discomfort which radiated into her left arm. At times it was severe. She did take sublingual nitroglycerin with some relief, but the discomfort was more or less continuous for 3 days before she presented to the Emergency Department. After arrival here, her cardiac markers have been negative despite having 3 days of ongoing chest discomfort. Her EKG showed no acute changes. She currently is pain free. She denies nausea or vomiting. She has had no hematochezia or hematemesis. No melena. ALLERGIES: HYDROCHLOROTHIAZIDE, LATEX AND DANY. PAST MEDICAL HISTORY: As outlined above, the patient does have known coronary artery disease with previous bare metal stents placed in 2013. She has paroxysmal atrial fibrillation which is controlled with amiodarone. She is not a candidate for anticoagulation because of hematochezia. She did have an IVC filter placed in 2015 for DVT. The patient has a long history of gastroesophageal reflux, gastroparesis and irritable bowel syndrome. The patient was under the care of a GI physician many years ago, but has since been lost to followup. According to the patient, there was contemplation of her having surgery for a large hiatal hernia, but she was told she was too old. She does have a history of bowel resection due to diverticular disease and incarcerated hernia. She is status post left total knee replacement. She has also had a cholecystectomy. FAMILY MEDICAL HISTORY: Noncontributory. SOCIAL HISTORY: The patient has never smoked. She is and lives alone. REVIEW OF SYSTEMS: A 10-point review of systems is negative except for the history of chief complaint. PHYSICAL EXAMINATION: GENERAL: She is alert and oriented in no acute distress. VITAL SIGNS: Blood pressure 138/67, pulse is regular at 58 beats per minute. She is afebrile. HEAD, EYES, EARS, NOSE, AND THROAT: She is normocephalic. Pupils are equal and reactive to light. Extraocular muscles are intact bilaterally. NECK: The neck veins are flat. Carotids have good upstrokes bilaterally without bruits. Thyroid is nonpalpable. RESPIRATORY: Breath sounds equal bilaterally and clear to auscultation. CARDIOVASCULAR: Heart has a regular rhythm. Normal S1, S2. No S3, S4. No cardiac rubs or murmurs. GASTROINTESTINAL: Abdomen is soft, nontender without organomegaly. EXTREMITIES: Free of edema, digit clubbing, or cyanosis. NEUROLOGIC: Grossly intact. SKIN: Warm to touch. LYMPH NODES: Negative to palpation. LABORATORY DATA: Cardiac troponins are negative x3. Hemoglobin is 11.9, WBC count is 5.14. IMPRESSION: 1. Noncardiac chest pain. 2. History of previous bare metal stents placed in the left circumflex and right coronary artery in 2013. 3. History of hiatal hernia and gastroesophageal reflux. RECOMMENDATIONS: Despite having ongoing chest pain for 3 days, this patient's cardiac markers are negative and her EKG shows no acute changes. This leads me away from a cardiac origin for her chest pain. I think we should have the GI service see her for consultation and recommendations. I am going to cancel her dobutamine stress test which was scheduled by the hospitalist.
--- NOTE | 2017-10-08 12:00 | NUR ---
A: ASSESSMENT UNCHANGED. Q1H ROUNDING. CALL CRISTOBAL WITHIN REACH. WILL CONTINUE TO MONITOR.
--- NOTE | 2017-10-08 12:50 | Gastrointestinal Consultation ---
Gastrointestinal Consultation Date of Consultation: Oct 08, 2017 Attending Physician: Roel Kelsey Consulting Physician: Johnny Aponte Reason for Consultation: Hiatal hernia History of Present Illness Patient is a 87 year old female seen for evaluation of hiatal hernia. She has PMHx of HTN, CAD s/p 2 stents placement in 2013, Afib, DVT previously on Coumadin but DC'd due to hematochezia now has IVC filter, hiatal hernia who presented to ED w c/o mid chest pain x 3 days. Has associated headache for weeks now. Also has dry heaving but no vomiting. Denies any sick contact. She described the chest pain as having a fist there and it radiates straight to her back. Cardiac enzymes normal. CXR showed L atelectasis. RUQ u/s showed no gross abnormalities. She is s/p cholecystectomy. CT chest w/o PE, but she has cardiomegaly w evidence of coronary artery calcification and moderate sized hiatal hernia. Pt has known hiatal hernia since at least 2010 when she had EGD evaluation for heartburn. She does have signs of reactive gastropathy then as well. She has ongoing symptoms of reflux but controlled well w Prilosec 20mg BID. Reports occasionally trouble with food stuck in upper throat but no loss of appetite or weight because of swallowing issues. She also has hx of gastroparesis (abnormal gastric emptying study in 2010). She ate dinner last night w some salads, fruits and did have some epigastric area fullness and slight tenderness. She currently feels well, said the chest pain had gone away since Nitroglycerin paste was applied. She denies any n/v, and does want to eat something. Cardiology had cancelled stress test given no more CP, no signs of cardiac enzyme elevation, EKG ok. Past Medical/Surgical History Medical Problems: (1) Precordial chest pain Status: Acute (2) Precordial chest pain Status: Acute (3) Small bowel obstruction Status: Acute (4) Vomiting Status: Acute Past Medical History: See above, also asthma, CKD III, diverticulitis, herpes zoster, HRT, HTN, hypothyroidism, IBS, OA, OP, Past Surgical History: Appendectomy, Hx of partial bowel resection for diverticulitis, and incarcerated hernia, L TKR, cholecystectomy, oophorectomy, R rotator cuff surgery, ex lap w lysis of adhesions. Family History Cancer MOTHER (Stomach CA) SISTER (Lymphoma) FH: multiple sclerosis MOTHER Heart disease FATHER Social History Smoking Status: Never Smoker Alcohol Use: none Drug Use: none Marital Status: Housing Status: lives alone Occupation Status: retired Allergies Coded Allergies: Hydrochlorothiazide (Verified Allergy, Unknown, UNKNOWN, 10/07/17) Latex (Verified Allergy, Unknown, rash, red, 10/07/17) Nickel (Verified Allergy, Unknown, local skin irritation, 10/07/17) Current Medications Home Meds and Scripts Medications Dose Route/Sig Max Daily Dose Days Date Category Questran (Cholestyramine) 4 Gm Pow 1 Pkt PO BEFORE MEALS 10/07/17 Reported Vitamin B-12 (Cyanocobalamin) 1,000 Mcg Tab 1,000 Mcg PO DAILY 10/07/17 Reported Synthroid (Levothyroxine Sodium) 75 Mcg Tab 75 Mcg PO DAILY 10/07/17 Reported Ultram (Tramadol HCl) 50 Mg Tab 50 Mg PO TID PRN 10/07/17 Reported Vitamin D (Cholecalciferol) 1,000 Unit Tab 2 Tab PO QAM 02/26/17 Reported Aspirin Chewable (Aspirin) 81 Mg Chew 81 Mg PO QAM 02/26/17 Reported Nitrostat (Nitroglycerin) 0.4 Mg Sub 0.4 Mg UT PRN 02/26/17 Reported Prolia (Denosumab) 60 Mg/Ml Heavenly 1 Dose INJ [id number] 02/26/17 Reported Kp Ferrous Sulfate (Ferrous Sulfate) 325 Mg Tab 1 Tab PO DAILY 30 02/26/17 Reported Prilosec (Omeprazole) 20 Mg Capcr 20 Mg PO BID 02/26/17 Reported Lipitor (Atorvastatin Calcium) 20 Mg Tab 20 Mg PO QPM 02/26/17 Reported Atrovent Hfa (Ipratropium [place]) 200 Puffs/3400 Mcg Aers 2 Puffs INH QID 02/26/17 Reported Ativan (Lorazepam) 0.5 Mg Tab 0.5 Mg PO BID 02/26/17 Reported Slow-Mag Tab (Magnesium Chloride) 64 Mg Tabcr 64 Mg PO QAM 02/26/17 Reported Metoprolol Tartrate 50 Mg Tab 1 Tab PO BID 02/26/17 Reported Mysoline (Primidone) 50 Mg Tab 50 Mg PO QAM 02/26/17 Reported Cordarone (Amiodarone Hcl) 200 Mg Tab 200 Mg PO QAM 02/26/17 Reported Detrol (Tolterodine Tartrate) 1 Mg Tab 1 Mg PO BID 02/26/17 Reported Norvasc (Amlodipine Besylate) 5 Mg Tab 5 Mg PO QAM 02/26/17 Reported Apresoline (Hydralazine Hcl) 25 Mg Tab 25 Mg PO BID 02/26/17 Reported Review of Systems Constitutional: No fever, No chills, No weight loss, No weakness Respiratory: No cough, No shortness of breath Cardiac: No chest pain Abdomen: + see HPI, + dysphagia, No pain, No nausea, No vomiting, No diarrhea, No constipation Physical Exam Date Time Temp Pulse Resp B/P (MAP) Pulse Ox O2 Delivery O2 Flow Rate FiO2 10/08/17 11:47 36.8 94 10/08/17 11:00 63 165/78 (107) 10/08/17 08:00 Room Air 10/08/17 07:56 36.8 56 16 142/56 (84) 95 Room Air 10/08/17 04:43 36.8 60 18 110/62 (78) 91 Room Air 10/08/17 04:00 Room Air 10/08/17 00:01 36.9 60 17 112/45 (67) 91 Room Air 10/08/17 00:00 Room Air 10/07/17 20:00 94 Room Air 10/07/17 19:08 36.7 58 146/81 (102) 94 Room Air 10/07/17 18:07 63 20 145/64 92 Room Air 10/07/17 17:34 93 Room Air 10/07/17 14:27 58 18 138/67 93 Room Air 10/07/17 13:16 97 Room Air 10/07/17 13:01 61 10/07/17 12:42 36.7 55 18 190/83 97 Room Air General Appearance: WD/WN, no apparent distress, + obese Eyes: normal inspection, PERRL, EOMI Neck: supple, no JVD, trachea midline Respiratory/Chest: normal breath sounds, no respiratory distress, no accessory muscle use Cardiovascular: regular rate, rhythm, no gallop, no murmur Abdomen: normal bowel sounds, non tender, soft Extremities: normal inspection, no pedal edema, no calf tenderness Neurologic/Psych: alert, normal mood/affect, oriented x 3 Skin: normal color, no jaundice, no rash Laboratory Results Last 24 Hours Test 10/07/17 13:25 10/07/17 19:34 10/08/17 01:27 10/08/17 05:12 White Blood Count 4.82 K/uL 5.14 K/uL Red Blood Count 4.13 M/uL 3.75 M/uL Hemoglobin 13.0 g/dL 11.9 g/dL Hematocrit 39.9 % 36.2 % Mean Corpuscular Volume 96.6 fL 96.5 fL Mean Corpuscular Hemoglobin 31.5 pg 31.7 pg Mean Corpuscular Hemoglobin Concent 32.6 g/dl 32.9 g/dl RDW Standard Deviation 53.5 fL 53.4 fL RDW Coefficient of Variation 15.2 % 15.1 % Platelet Count 215 K/uL 189 K/uL Mean Platelet Volume 11.8 fL 11.4 fL Prothrombin Time 10.4 SECONDS 10.6 SECONDS Prothromb Time International Ratio 1.0 1.0 Activated Partial Thromboplast Time 25.8 SECONDS 25.5 SECONDS Partial Thromboplastin Ratio 1.0 1.0 Sodium Level 137 mmol/L 137 mmol/L Potassium Level 4.2 mmol/L 4.2 mmol/L Chloride Level 106 mmol/L 106 mmol/L Carbon Dioxide Level 27 mmol/L 28 mmol/L Anion Gap 4.0 mmol/L 3.0 mmol/L Blood Urea Nitrogen 15 mg/dl 14 mg/dl Creatinine 0.93 mg/dl 0.91 mg/dl Est Creatinine Clear Calc Drug Dose 50.0 ml/min 50.7 ml/min Estimated GFR () 65.0 66.7 Estimated GFR (Non- 56.0 57.5 BUN/Creatinine Ratio 15.9 15.9 Random Glucose 97 mg/dl 100 mg/dl Calcium Level 8.8 mg/dl 8.3 mg/dl Total Bilirubin 0.4 mg/dl Aspartate Amino Transf (AST/SGOT) 26 U/L Alanine Aminotransferase (ALT/SGPT) 30 U/L Alkaline Phosphatase 97 U/L Troponin I < 0.015 ng/ml < 0.015 ng/ml < 0.015 ng/ml Total Protein 7.4 gm/dl Albumin 3.3 gm/dl Globulin 4.1 gm/dl Albumin/Globulin Ratio 0.8 Lipase 100 U/L Total Creatine Kinase 53 U/L 46 U/L Creatine Kinase MB 1.1 ng/ml 0.9 ng/ml Creatine Kinase MB Ratio 2.1 2.0 Impression Patient is a 87 year old female with symptoms of mid chest pain radiating to back, no signs of cardiac enzymes elevation, EKG changes. Though hx of CAD s/p cardiac stent placements, Afib and she reports chest pain went away after she had Nitro paste. She did have hx of hiatal hernia w GERD, and gastroparesis. Reports occasional dysphagia, and reflux in general controlled w Prilosec 20mg BID at home. No appetite/weight loss. She currently denies any abd pain, n/v, desires to have something to eat. Plan - Will obtain UGI series to eval hiatal hernia and to r/o PUD - If negative study, can start diet and no contraindication for DC home. - Continue PPI PO BID. - Would recommend her being on gastroparesis diet (low fiber, avoid raw veggies , chop up fruits/veggies well; spread meals apart throughout day). ATTESTATION: I have performed a history and physical examination of this patient and reviewed the electronic record. Specifically, on physical examination there is no abdominal tenderness. I have discussed the case with MARTI Barbosa. The above note reflects my findings, conclusions, and recommendations. Johnny Aponte MD
--- NOTE | 2017-10-08 13:50 | DIAGNOSTIC IMAGING REPORT ---
GI SERIES W/AIR ROUTINE CLINICAL HISTORY: Epigastric pain. History of hiatal hernia. COMPARISON STUDY: Barium swallow September 18, 2010. FLUOROSCOPY TIME: 3.2 minutes. FINDINGS: 20 fluoroscopic images demonstrate a moderate sized hiatal hernia. No esophageal mass or stricture was identified by fluoroscopy. No reflux was elicited. Moderate esophageal dysmotility was noted. Gastric fold pattern was normal. No duodenal abnormality is identified. Caliber of the opacified small bowel was normal. IVC filter is incidentally noted. IMPRESSION: 1. Moderate sized hiatal hernia. 2. Moderate esophageal dysmotility. 3. No esophageal mass or stricture. Electronically signed by: Igor Porras M.D. 10/08/2017 1:49 PM Dictated Date/Time: 10/08/2017 1:47 PM
--- NOTE | 2017-10-08 14:31 | Progress Note ---
Internal Med Progress Note Date of Service: Oct 08, 2017. Provider Documentation: SUBJECTIVE: Patient reports that this morning discomfort of chest and back is gone. Patient has been comfortable. Ambulatory. Cooperative on exams and tests OBJECTIVE: General Appearance: no apparent distress Head: normocephalic, atraumatic Eyes: normal inspection, sclerae normal ENT: normal ENT inspection, hearing grossly normal, pharynx normal (moist mucous membranes) Neck: supple, no JVD, trachea midline Respiratory/Chest: lungs clear, normal breath sounds, no respiratory distress, no accessory muscle use Cardiovascular: regular rate, rhythm, no murmur, normal peripheral pulses Abdomen/GI: soft, + bowel sounds Back: normal inspection Extremities/Musculoskelatal: normal inspection, no calf tenderness, no pedal edema Neurologic/Psych: no motor/sensory deficits, alert, normal mood/affect, oriented x 3 ASSESSMENT & PLAN: Patient was evaluated by Cardiology on 10/08/17 "Despite having ongoing chest pain for 3 days, this patient's cardiac markers are negative and her EKG shows no acute changes." Stress echocardiogram was not deemed necessary and Gastroenterology was consulted Upper GI series 10/08/17 FINDINGS: 20 fluoroscopic images demonstrate a moderate sized hiatal hernia. No esophageal mass or stricture was identified by fluoroscopy. No reflux was elicited. Moderate esophageal dysmotility was noted. Gastric fold pattern was normal. No duodenal abnormality is identified. Caliber of the opacified small bowel was normal. IVC filter is incidentally noted. IMPRESSION: 1. Moderate sized hiatal hernia. 2. Moderate esophageal dysmotility. 3. No esophageal mass or stricture. As per Gastroenterology recommendations - Continue home Omeprazole PO BID. - Would recommend her being on gastroparesis diet (low fiber, avoid raw veggies , chop up fruits/veggies well; spread meals apart throughout day). Patient should follow up with Family Linette Scott Mark S, MD [facility] appointment line [phone] was called to ask the primary care clinic to schedule appointment with the patient 11/03/2017 10:25 AM Eran Gregory DO Cardiology, [facility] Vital Signs: Date Time Temp Pulse Resp B/P (MAP) Pulse Ox O2 Delivery O2 Flow Rate FiO2 10/08/17 14:35 36.8 64 16 129/75 (93) 93 Room Air 10/08/17 12:00 Room Air 10/08/17 11:47 36.8 94 10/08/17 11:00 63 165/78 (107) 10/08/17 08:00 Room Air 10/08/17 07:56 36.8 56 16 142/56 (84) 95 Room Air 10/08/17 04:43 36.8 60 18 110/62 (78) 91 Room Air 10/08/17 04:00 Room Air 10/08/17 00:01 36.9 60 17 112/45 (67) 91 Room Air 10/08/17 00:00 Room Air 10/07/17 20:00 94 Room Air 10/07/17 19:08 36.7 58 146/81 (102) 94 Room Air 10/07/17 18:07 63 20 145/64 92 Room Air 10/07/17 17:34 93 Room Air Lab Results: Results Past 24 Hours Test 10/07/17 19:34 10/08/17 01:27 10/08/17 05:12 Range/Units Total Creatine Kinase 53 46 26-192 U/L Creatine Kinase MB 1.1 0.9 0.5-3.6 ng/ml Creatine Kinase MB Ratio 2.1 2.0 0-3.0 Troponin I < 0.015 < 0.015 0-0.045 ng/ml White Blood Count 5.14 4.8-10.8 K/uL Red Blood Count 3.75 4.2-5.4 M/uL Hemoglobin 11.9 12.0-16.0 g/dL Hematocrit 36.2 37-47 % Mean Corpuscular Volume 96.5 80-100 fL Mean Corpuscular Hemoglobin 31.7 25-34 pg Mean Corpuscular Hemoglobin Concent 32.9 32-36 g/dl RDW Standard Deviation 53.4 36.4-46.3 fL RDW Coefficient of Variation 15.1 11.5-14.5 % Platelet Count 189 130-400 K/uL Mean Platelet Volume 11.4 7.4-10.4 fL Prothrombin Time 10.6 9.0-12.0 SECONDS Prothromb Time International Ratio 1.0 0.9-1.1 Activated Partial Thromboplast Time 25.5 21.0-31.0 SECONDS Partial Thromboplastin Ratio 1.0 Sodium Level 137 136-145 mmol/L Potassium Level 4.2 3.5-5.1 mmol/L Chloride Level 106 98-107 mmol/L Carbon Dioxide Level 28 21-32 mmol/L Anion Gap 3.0 3-11 mmol/L Blood Urea Nitrogen 14 7-18 mg/dl Creatinine 0.91 0.60-1.20 mg/dl Est Creatinine Clear Calc Drug Dose 50.7 ml/min Estimated GFR () 66.7 Estimated GFR (Non- 57.5 BUN/Creatinine Ratio 15.9 10-20 Random Glucose 100 70-99 mg/dl Calcium Level 8.3 8.5-10.1 mg/dl
--- NOTE | 2017-10-08 14:36 | NUR ---
Discharge planning consult received. I spoke with the patient at bedside, she is alert and oriented x 4. She states that she lives alone in her own home however her daughter Amber (POA) left next door. She currently has a cane. She is independent with adl's and continues to drive short distances. Her daughter assists as needed, she has no history of home health services. Her plan is to return home at discharge. Patient would benefit from pt/ot evals, case management to follow.
[2017-10-08] MEDS ORDERED: NITR0.4S UT (14:37)
--- NOTE | 2017-10-08 14:46 | Discharge Instructions ---
Discharge Instructions Date of Service Oct 08, 2017. Admission Reason for Admission: Atypical Chest Pain Discharge Discharge Diagnosis / Problem: chest/back pain, hiatal hernia, esophageal dysmotility Discharge Goals Goal(s): Decrease discomfort Activity Recommendations Activity Limitations: resume your previous activity Shower/Bathe: no limitations . Instructions / Follow-Up Instructions / Follow-Up Patient was evaluated by Cardiology on 10/08/17 "Despite having ongoing chest pain for 3 days, this patient's cardiac markers are negative and her EKG shows no acute changes." Stress echocardiogram was not deemed necessary and Gastroenterology was consulted Upper GI series 10/08/17 FINDINGS: 20 fluoroscopic images demonstrate a moderate sized hiatal hernia. No esophageal mass or stricture was identified by fluoroscopy. No reflux was elicited. Moderate esophageal dysmotility was noted. Gastric fold pattern was normal. No duodenal abnormality is identified. Caliber of the opacified small bowel was normal. IVC filter is incidentally noted. IMPRESSION: 1. Moderate sized hiatal hernia. 2. Moderate esophageal dysmotility. 3. No esophageal mass or stricture. As per Gastroenterology recommendations - Continue home Omeprazole PO BID. - Would recommend her being on gastroparesis diet (low fiber, avoid raw veggies , chop up fruits/veggies well; spread meals apart throughout day). Patient should follow up with Family Practice, Marc Nunn MD [facility] appointment line [phone] was called to ask the primary care clinic to schedule appointment with the patient 11/03/2017 10:25 AM Eran Gregory, Cardiology, [facility] Current Hospital Diet Patient's current hospital diet: AHA Diet (Heart Healthy), Low Sodium Diet (2gm Na) Discharge Diet Recommended Diet: N/A (see discharge instructions) Pending Studies Studies pending at discharge: no Laboratory Results 10/08/17 05:12 10/08/17 05:12 Test 10/07/17 13:25 10/08/17 01:27 10/08/17 05:12 Total Bilirubin 0.4 mg/dl (0.2-1) Aspartate Amino Transf (AST/SGOT) 26 U/L (15-37) Alanine Aminotransferase (ALT/SGPT) 30 U/L (12-78) Alkaline Phosphatase 97 U/L (45-117) Total Protein 7.4 gm/dl (6.4-8.2) Albumin 3.3 gm/dl (3.4-5.0) Globulin 4.1 gm/dl (2.5-4.0) Albumin/Globulin Ratio 0.8 (0.9-2) Lipase 100 U/L (73-393) Total Creatine Kinase 46 U/L (26-192) Creatine Kinase MB 0.9 ng/ml (0.5-3.6) Creatine Kinase MB Ratio 2.0 (0-3.0) Troponin I < 0.015 ng/ml (0-0.045) Red Blood Count 3.75 M/uL (4.2-5.4) Mean Corpuscular Volume 96.5 fL (80-100) Mean Corpuscular Hemoglobin 31.7 pg (25-34) Mean Corpuscular Hemoglobin Concent 32.9 g/dl (32-36) RDW Standard Deviation 53.4 fL (36.4-46.3) RDW Coefficient of Variation 15.1 % (11.5-14.5) Mean Platelet Volume 11.4 fL (7.4-10.4) Prothrombin Time 10.6 SECONDS (9.0-12.0) Prothromb Time International Ratio 1.0 (0.9-1.1) Activated Partial Thromboplast Time 25.5 SECONDS (21.0-31.0) Partial Thromboplastin Ratio 1.0 Anion Gap 3.0 mmol/L (3-11) Est Creatinine Clear Calc Drug Dose 50.7 ml/min Estimated GFR () 66.7 Estimated GFR (Non- 57.5 BUN/Creatinine Ratio 15.9 (10-20) Calcium Level 8.3 mg/dl (8.5-10.1) Medical Emergencies . Who to Call and When: Medical Emergencies: If at any time you feel your situation is an emergency, please call 911 immediately. . Non-Emergent Contact Non-Emergency issues call your: Primary Care Provider Call Non-Emergent contact if: your pain is not controlled, your pain is worsening, your pain is unusual for you . . "Provider Documentation" section prepared by Bret Liu. . VTE Core Measure Inpt VTE Proph given/why not?: Unfractionated heparin SQ
--- NOTE | 2017-10-08 14:51 | Discharge Summary ---
Discharge Summary Date of Service Oct 08, 2017. Discharge Summary Admission Date: Oct 07, 2017 at 17:13 Discharge Date: Oct 08, 2017 Principal Diagnosis: atypical chest pain, hiatal hernia, esophageal dysmotility Procedures: Upper GI series Consultations: cardiology, gastroenterology Medication Reconciliation Continued Medications: Amiodarone Hcl (Cordarone) 200 Mg Tab 200 MG PO QAM, TAB Amlodipine (Norvasc) 5 Mg Tab 5 MG PO QAM, TAB Aspirin (Aspirin Chewable) 81 Mg Chew 81 MG PO QAM Atorvastatin (Lipitor) 20 Mg Tab 20 MG PO QPM, TAB Cholecalciferol (Vitamin D) 1,000 Unit Tab 2 TAB PO QAM Cholestyramine (Questran) 4 Gm Pow 1 PKT PO before meals Cyanocobalamin (Vitamin B-12) 1,000 Mcg Tab 1000 MCG PO DAILY, TAB Denosumab (Prolia) 60 Mg/Ml Heavenly 1 DOSE INJ [id number] Ferrous Sulfate (Kp Ferrous Sulfate) 325 Mg Tab 1 TAB PO DAILY for 30 Days, #30 TAB 3 Refills Hydralazine Hcl (Apresoline) 25 Mg Tab 25 MG PO BID, TAB Ipratropium [place] (Atrovent Hfa) 200 Puffs/3400 Mcg Aers 2 PUFFS INH QID, #12.9 GM 3 Refills Levothyroxine Sodium (Synthroid) 75 Mcg Tab 75 MCG PO DAILY, TAB Lorazepam (Ativan) 0.5 Mg Tab 0.5 MG PO BID, TAB Magnesium Chloride (Slow-Mag Tab) 64 Mg Tabcr 64 MG PO QAM, TAB Metoprolol Tartrate (Metoprolol Tartrate) 50 Mg Tab 1 TAB PO BID Nitroglycerin (Nitrostat) 0.4 Mg Sub 0.4 MG UT PRN for 30 Days, #1 BTL 1 Refill (This prescription has been renewed) Omeprazole (Prilosec) 20 Mg Capcr 20 MG PO BID, CAP Primidone (Mysoline) 50 Mg Tab 50 MG PO QAM, TAB Tolterodine Tartrate (Detrol) 1 Mg Tab 1 MG PO BID, TAB Tramadol (Ultram) 50 Mg Tab 50 MG PO TID PRN for Pain, TAB Admission Information HPI (per Admitting provider): This is a 87yo F with a PMH of HTN, CAD (s/p 2 stent in 2013), paroxysmal A fib , h/o DVT (IVC filter in place), HTN, HLD, diaphragmatic hernia and other problems listed below who presents with persistent chest pain x 3 days. Patient was in normal state of health until Friday night, when she had a few bouts of dry heaves. On Friday, she endorses sudden 10/10 central chest pain with radiation to her back. Pain is sharp, constant and worse with exertion. Endorses radiation to jaw. Has been taking ntg at home with some relief. Denies diaphoresis, nausea, vomiting or SOB. Follows with Dr. Gregory for CAD, paroxysmal A fib, HTN HLD and h/o DVT. Was previously on coumadin but was discontinued 2/2 recurrent bouts of hematochezia during an admission to [facility] in 2014. Most recent echo from 2013 with normal size left ventricle, estimated EF of 50-55%. In addition to CP, patient endorses a frontal headache for the last 2 weeks. Denies a history of headaches. Denies fever, chills, visual changes, URI symptoms, palpitations, SOB, abd pain, nausea, vomiting or LE swelling. Physical Exam (per Admitting): General Appearance: no apparent distress, + obese Head: normocephalic, atraumatic Eyes: normal inspection, PERRL, sclerae normal ENT: normal ENT inspection, hearing grossly normal, pharynx normal (moist mucous membranes) Neck: supple, no JVD, trachea midline Respiratory/Chest: lungs clear, normal breath sounds, no respiratory distress, no accessory muscle use, + pertinent finding (Chest wall tenderness) Cardiovascular: regular rate, rhythm, no murmur, normal peripheral pulses Abdomen/GI: soft, no organomegaly, + tenderness (epigastric tenderness ) Back: normal inspection Extremities/Musculoskelatal: normal inspection, no calf tenderness, no pedal edema Neurologic/Psych: no motor/sensory deficits, alert, normal mood/affect, oriented x 3 Skin: normal color, warm/dry Hospital Course Patient was evaluated by Cardiology on 10/08/17 "Despite having ongoing chest pain for 3 days, this patient's cardiac markers are negative and her EKG shows no acute changes." Stress echocardiogram was not deemed necessary and Gastroenterology was consulted Upper GI series 10/08/17 FINDINGS: 20 fluoroscopic images demonstrate a moderate sized hiatal hernia. No esophageal mass or stricture was identified by fluoroscopy. No reflux was elicited. Moderate esophageal dysmotility was noted. Gastric fold pattern was normal. No duodenal abnormality is identified. Caliber of the opacified small bowel was normal. IVC filter is incidentally noted. IMPRESSION: 1. Moderate sized hiatal hernia. 2. Moderate esophageal dysmotility. 3. No esophageal mass or stricture. As per Gastroenterology recommendations - Continue home Omeprazole PO BID. - Would recommend her being on gastroparesis diet (low fiber, avoid raw veggies , chop up fruits/veggies well; spread meals apart throughout day). [facility] appointment line [phone] was called to ask the primary care clinic to schedule appointment with the patient 11/03/2017 10:25 AM Eran Gregory, DO Cardiology, [facility] Total time spent on discharge = 60 minutes This includes examination of the patient, discharge planning, medication reconciliation, and communication with other providers. Discharge Instructions see above
--- NOTE | 2017-10-08 15:22 | NUR ---
OBS: Patient discharged at this time via wheelchair with all belongings. Saline locks removed, catheters intact. Discharge instructions given, all questions answered.
[2017-12-12] MEDS ORDERED: LSN10 PO (11:02)
== END 2017-10-08 15:44 | disposition home or self-care (01) ==
LOC: C.EDB 12:38 → C.MED 17:13 → CANRESERV 17:43 → ENRESERV 17:43
PROVIDERS: ADMIT Internal Medicine; ATTEND Hospitalist
DX: R07.89 Other chest pain (principal); K44.9 Diaphragmatic hernia without obstruction or gangrene; K22.4 Dyskinesia of esophagus; I12.9 Hypertensive chronic kidney disease with stage 1 through stage 4 chronic kidney disease, or unspecified chronic kidney disease; N18.3 Chronic kidney disease, stage 3 (moderate); I25.10 Atherosclerotic heart disease of native coronary artery without angina pectoris; E03.9 Hypothyroidism, unspecified; I48.0 Paroxysmal atrial fibrillation; Z86.718 Personal history of other venous thrombosis and embolism; J45.909 Unspecified asthma, uncomplicated; Z79.890 Hormone replacement therapy; Z91.040 Latex allergy status; Z90.89 Acquired absence of other organs; Z90.721 Acquired absence of ovaries, unilateral; Z96.652 Presence of left artificial knee joint; Z90.49 Acquired absence of other specified parts of digestive tract; Z79.899 Other long term (current) drug therapy; Z79.82 Long term (current) use of aspirin; Z80.9 Family history of malignant neoplasm, unspecified; Z82.49 Family history of ischemic heart disease and other diseases of the circulatory system; Z82.69 Family history of other diseases of the musculoskeletal system and connective tissue

== ENCOUNTER 2017-12-11 08:51 | Observation (INO) | payer OTHER, MEDICARE ==
[~2017-12-11] VITALS: Ht 165.1 cm; Wt 94.0 kg
[~2017-12-11 08:51] MED LIST changes: +AMLO-110 PO; -AMLO5TAB3 PO; +CHOL4POW11 PO; +CYAN10005 PO; -LEVO50TA6 PO; +LEVO75TA PO; -POTA10TA PO; +TRAM-10 PO; -[UNRECOGNIZED DRUG - CODE] PO
--- NOTE | 2017-12-11 09:28 | DIAGNOSTIC IMAGING REPORT ---
CHEST ONE VIEW PORTABLE CLINICAL HISTORY: EVALUATE WEAKNESS dyspnea COMPARISON STUDY: 1226 2 and 17 FINDINGS: Mild stable cardiomegaly. Chronic parenchymal scarring left lung base. Lungs otherwise appear clear. Patient is status post right shoulder arthroplasty. IMPRESSION: Mild stable cardiomegaly. Chronic and postoperative change. No acute process. The above report was generated using voice recognition software. It may contain grammatical, syntax or spelling errors. Electronically signed by: Marc Warren M.D. 12/11/2017 9:26 AM Dictated Date/Time: 12/11/2017 9:25 AM
[2017-12-11 09:30] LABS: BASO % 1.1 %; BASO ABS # 0.05 K/uL (0-0.2); EOS % 7.2 %; EOS ABS # 0.33 K/uL (0-0.5); HEMATOCRIT 39.5 % (37-47); HEMOGLOBIN 13.2 g/dL (12.0-16.0); LYMPH % 18.9 %; LYMPH ABS # 0.86 K/uL (1.2-3.4); MEAN CELL VOLUME 95.9 fL (80-100); MEAN CORPUSCULAR HGB CONC 33.4 g/dl (32-36); MEAN PLATELET VOLUME 11.9 fL (7.4-10.4); MONO % 11.6 %; MONO ABS # 0.53 K/uL (0.11-0.59); NEUT % 61.2 %; NEUT ABS # 2.79 K/uL (1.4-6.5); PLATELET COUNT 219 K/uL (130-400); RED CELL DISTRIBUTION WIDTH CV 13.8 % (11.5-14.5); RED CELL DISTRIBUTION WIDTH SD 48.4 fL (36.4-46.3); WHITE BLOOD COUNT 4.56 K/uL (4.8-10.8)
[2017-12-11] MEDS ORDERED: ONDA4TAB46 PO (09:33)
[2017-12-11] MEDS ORDERED: LSX20 PO (09:33)
[2017-12-11] MEDS ORDERED: LEVO88TA3 PO (09:33)
[2017-12-11 09:38] LABS: PTT PATIENT 25.1 SECONDS (21.0-31.0)
[2017-12-11 09:57] LABS: ALBUMIN 3.4 gm/dl (3.4-5.0); ALT/SGPT 32 U/L (12-78); AST/SGOT 31 U/L (15-37); BLOOD UREA NITROGEN 16 mg/dl (7-18); CALCIUM 8.8 mg/dl (8.5-10.1); CARBON DIOXIDE 27 mmol/L (21-32); CREATININE 0.98 mg/dl (0.60-1.20); GLUCOSE 120 mg/dl (70-99); POTASSIUM 4.2 mmol/L (3.5-5.1); SODIUM 137 mmol/L (136-145)
[2017-12-11 10:04] LABS: ALKALINE PHOSPHATASE 95 U/L (45-117); CKMB 0.6 ng/ml (0.5-3.6); TOTAL PROTEIN 7.3 gm/dl (6.4-8.2)
--- NOTE | 2017-12-11 10:57 | EMERGENCY ROOM VISIT NOTE ---
History Report prepared by Satinder: Pedro Hernandez Under the Supervision of: Dr. Neo Miller M.D. First contact with patient: 09:05 Chief Complaint: ILLNESS Stated Complaint: CHEST PAIN,SOB History of Present Illness The patient is a 87 year old female who presents to the Emergency Room with complaints of chest pain, weakness, and headache beginning one hours ago. The patient also complains of chest pain, generalized weakness and shortness of breath. She notes that she had a heart monitor on last week which she returned three days ago. She states that she had the heart rate monitor because she had been having episodes of dizziness associated with low heart rate. The patient states that she currently has no chest pain. She states that her symptoms began today with a two episodes of dizziness beginning three hours ago. She states that she felt her chest pain next (one hour ago), followed by the headache. She states that her chest pain is only there briefly when present, maybe 10 minutes. The patient states that she has had a normal appetite recently. She denies known sick contacts. Pt denies LOC, fevers, chills, visual changes, neck pain/stiffness, thunder clap or sudden onset of headache, carbon monoxide exposure, ear problems/hearing loss, sinus congestion/recent infection, vomiting , abdominal pain, urinary symptoms, cough numbness, weakness, lymphadenopathy, rash, or other complaints Source of History: patient Onset: one hours ago Position: head Quality: ache Timing: constant Associated Symptoms: + chest pain (resolved), + SOB, + weakness (generalized ) Note: Additional symptoms: Review of Systems See HPI for pertinent positives and negatives. A total of ten systems were reviewed and were otherwise negative. Past Medical & Surgical Medical Problems: (1) Anxiety (2) Asthma (3) CAD S/P percutaneous coronary angioplasty (4) Chest pain (5) CKD (chronic kidney disease), stage III (6) Gastroparesis (7) GERD (gastroesophageal reflux disease) (8) H/O deep venous thrombosis (9) History of colonic diverticulitis (10) History of herpes zoster (11) Hormone replacement therapy (postmenopausal) (12) HTN (hypertension) (13) Hypothyroidism (14) Irritable bowel syndrome (15) Osteoarthritis (16) Osteoporosis (17) Paroxysmal atrial fibrillation Surgical Problems: (1) History of appendectomy (2) History of bowel resection (3) History of total left knee replacement (4) History of vein stripping (5) Hx of cholecystectomy (6) S/P oophorectomy (7) S/P rotator cuff repair (8) Status post coronary artery stent placement (9) Status post exploratory laparotomy Family History Cancer MOTHER (Stomach CA) SISTER (Lymphoma) FH: multiple sclerosis MOTHER Heart disease FATHER Social History Smoking Status: Never Smoker Alcohol Use: none Drug Use: none Marital Status: Housing Status: lives alone Occupation Status: retired Current/Historical Medications Scheduled Amiodarone Hcl (Cordarone), 200 MG PO QAM Amlodipine (Norvasc), 2.5 MG PO DAILY Aspirin (Aspirin Chewable), 81 MG PO QAM Atorvastatin (Lipitor), 20 MG PO QPM Cholecalciferol (Vitamin D), 2 TAB PO QAM Cholestyramine (Questran), 1 PKT PO before meals Cyanocobalamin (Vitamin B-12), 1,000 MCG PO DAILY Denosumab (Prolia), 1 DOSE INJ [id number] Escitalopram Oxalate (Lexapro), 1 TAB PO DAILY Ferrous Sulfate (Kp Ferrous Sulfate), 1 TAB PO DAILY Furosemide (Furosemide), 40 MG PO DAILY Hydralazine Hcl (Apresoline), 25 MG PO BID Ipratropium [place] (Atrovent Hfa), 2 PUFFS INH QID Levothyroxine Sodium (Levothyroxine Sodium), 88 MCG PO DAILY Lorazepam (Ativan), 0.5 MG PO BID Magnesium Chloride (Slow-Mag Tab), 64 MG PO QAM Metoprolol Tartrate (Metoprolol Tartrate), 50 MG PO BID Nitroglycerin (Nitrostat), 0.4 MG UT PRN Omeprazole (Prilosec), 20 MG PO BID Primidone (Mysoline), 50 MG PO QAM Tolterodine Tartrate (Detrol), 1 MG PO BID Scheduled PRN Tramadol (Ultram), 50 MG PO TID PRN for Pain Allergies Coded Allergies: Hydrochlorothiazide (Verified Allergy, Unknown, UNKNOWN, 10/07/17) Latex (Verified Allergy, Unknown, rash, red, 10/07/17) Nickel (Verified Allergy, Unknown, local skin irritation, 10/07/17) Physical Exam Vital Signs Date Time Temp Pulse Resp B/P (MAP) Pulse Ox O2 Delivery O2 Flow Rate FiO2 12/11/17 11:46 61 20 182/87 95 Room Air 12/11/17 11:05 95 Room Air 12/11/17 10:37 55 18 180/71 95 Room Air 12/11/17 09:16 62 12/11/17 09:08 98 Room Air 12/11/17 09:08 98 Room Air 12/11/17 08:53 36.8 57 18 160/65 93 Room Air Physical Exam GENERAL: Awake, alert, uncomfortable-appearing, in no distress HENT: Normocephalic, atraumatic. Oropharynx unremarkable. EYES: Normal conjunctiva. Sclera non-icteric. NECK: Supple. No nuchal rigidity. FROM. No masses. RESPIRATORY: Clear to auscultation. No wheezes. CARDIAC: Borderline bradycardic rate. Normal rhythm. No murmurs. No rubs. Extremities warm and well perfused. Pulses equal. No JVD. GI: Soft, non-distended. No tenderness to palpation. No rebound or guarding. No masses. RECTAL: Deferred. MUSCULOSKELETAL: Atraumatic. Chest examination reveals no tenderness. The back is symmetrical on inspection without obvious abnormality. There is no CVA tenderness to palpation. No joint edema. LOWER EXTREMITIES: Calves are equal size bilaterally and non-tender. No edema. No discoloration. NEURO: Normal sensorium. No sensory or motor deficits noted. SKIN: No rash or jaundice noted. Medical Decision & Procedures ER Provider Diagnostic Interpretation: Radiology results as stated below per my review and radiologist interpretation: CHEST ONE VIEW PORTABLE FINDINGS: Mild stable cardiomegaly. Chronic parenchymal scarring left lung base. Lungs otherwise appear clear. Patient is status post right shoulder arthroplasty. IMPRESSION: Mild stable cardiomegaly. Chronic and postoperative change. No acute process. The above report was generated using voice recognition software. It may contain grammatical, syntax or spelling errors. Electronically signed by: Marc Warren M.D. 12/11/2017 9:26 AM Laboratory Results 12/11/17 09:07 Red Blood Count 4.12, Mean Corpuscular Volume 95.9, Mean Corpuscular Hemoglobin 32.0, Mean Corpuscular Hemoglobin Concent 33.4, Mean Platelet Volume 11.9, Neutrophils (%) (Auto) 61.2, Lymphocytes (%) (Auto) 18.9, Monocytes (%) (Auto) 11.6, Eosinophils (%) (Auto) 7.2, Basophils (%) (Auto) 1.1, Neutrophils # (Auto ) 2.79, Lymphocytes # (Auto) 0.86, Monocytes # (Auto) 0.53, Eosinophils # (Auto ) 0.33, Basophils # (Auto) 0.05 12/11/17 09:07 Test 12/11/17 09:07 12/11/17 11:20 White Blood Count 4.56 K/uL (4.8-10.8) Red Blood Count 4.12 M/uL (4.2-5.4) Hemoglobin 13.2 g/dL (12.0-16.0) Hematocrit 39.5 % (37-47) Mean Corpuscular Volume 95.9 fL (80-100) Mean Corpuscular Hemoglobin 32.0 pg (25-34) Mean Corpuscular Hemoglobin Concent 33.4 g/dl (32-36) Platelet Count 219 K/uL (130-400) Mean Platelet Volume 11.9 fL (7.4-10.4) Neutrophils (%) (Auto) 61.2 % Lymphocytes (%) (Auto) 18.9 % Monocytes (%) (Auto) 11.6 % Eosinophils (%) (Auto) 7.2 % Basophils (%) (Auto) 1.1 % Neutrophils # (Auto) 2.79 K/uL (1.4-6.5) Lymphocytes # (Auto) 0.86 K/uL (1.2-3.4) Monocytes # (Auto) 0.53 K/uL (0.11-0.59) Eosinophils # (Auto) 0.33 K/uL (0-0.5) Basophils # (Auto) 0.05 K/uL (0-0.2) RDW Standard Deviation 48.4 fL (36.4-46.3) RDW Coefficient of Variation 13.8 % (11.5-14.5) Immature Granulocyte % (Auto) 0.0 % Immature Granulocyte # (Auto) 0.00 K/uL (0.00-0.02) Prothrombin Time 10.4 SECONDS (9.0-12.0) Prothromb Time International Ratio 1.0 (0.9-1.1) Activated Partial Thromboplast Time 25.1 SECONDS (21.0-31.0) Partial Thromboplastin Ratio 1.0 Anion Gap 7.0 mmol/L (3-11) Est Creatinine Clear Calc Drug Dose 47.3 ml/min Estimated GFR () 61.0 Estimated GFR (Non- 52.6 BUN/Creatinine Ratio 16.1 (10-20) Calcium Level 8.8 mg/dl (8.5-10.1) Magnesium Level 2.0 mg/dl (1.8-2.4) Total Bilirubin 0.4 mg/dl (0.2-1) Direct Bilirubin 0.1 mg/dl (0-0.2) Aspartate Amino Transf (AST/SGOT) 31 U/L (15-37) Alanine Aminotransferase (ALT/SGPT) 32 U/L (12-78) Alkaline Phosphatase 95 U/L (45-117) Total Creatine Kinase 57 U/L (26-192) Creatine Kinase MB 0.6 ng/ml (0.5-3.6) Creatine Kinase MB Ratio 1.1 (0-3.0) Troponin I < 0.015 ng/ml (0-0.045) Total Protein 7.3 gm/dl (6.4-8.2) Albumin 3.4 gm/dl (3.4-5.0) Thyroid Stimulating Hormone (TSH) 4.900 uIu/ml (0.300-4.500) Urine Color YELLOW Urine Appearance CLEAR (CLEAR) Urine pH 6.5 (4.5-7.5) Urine Specific Veteran 1.012 (1.000-1.030) Urine Protein NEG (NEG) Urine Glucose (UA) NEG (NEG) Urine Ketones NEG (NEG) Urine Occult Blood NEG (NEG) Urine Nitrite NEG (NEG) Urine Bilirubin NEG (NEG) Urine Urobilinogen NEG (NEG) Urine Leukocyte Esterase TRACE (NEG) Urine WBC (Auto) 5-10 /hpf (0-5) Urine RBC (Auto) 0-4 /hpf (0-4) Urine Hyaline Casts (Auto) 1-5 /lpf (0-5) Urine Epithelial Cells (Auto) 20-30 /lpf (0-5) Urine Bacteria (Auto) NEG (NEG) Laboratory results reviewed by me Medications Administered Medications (Trade) Dose Ordered Sig/Bradley Route Start Time Stop Time Status Last Admin Dose Admin Nitroglycerin (Nitroglycerin 2% Oint) 0.5 inch NOW ONCE EXT 12/11/17 11:00 12/11/17 11:02 DC 12/11/17 11:25 0.5 INCH Acetaminophen (Tylenol Tab) 1,000 mg NOW STAT PO 12/11/17 11:08 12/11/17 11:09 DC 12/11/17 11:25 1,000 MG ECG Per My Interpretation Indication: chest pain Rate (beats per minute): 61 Rhythm: normal sinus Findings: no acute ischemic change, no ectopy, other (Normal intervals. LVH. ) ED Course 0910: The patient was evaluated in room A9B. A complete history and physical exam was performed. 0916: The patient began experiencing some chest pain. 1100: Ordered Nitroglycerin 2% Oint 0.5 inch EXT. 1105: Upon reexamination, the patient was resting comfortably. I discussed the test results and treatment plan with her. The patient will be evaluated for further management. 1108: Ordered Tylenol Tab 1000 mg PO. Medical Decision Triage Nursing notes reviewed. The patient's presentation and history were concerning for chest pain, shortness breath, and headache. Etiologies such as cardiac ischemia, pneumonia, viral syndrome, aortic dissection, pulmonary embolism, pneumothorax, musculoskeletal, infections, gastrointestinal, as well as others were entertained. The patient was evaluated. She had a nonfocal examination. Her ECG did not reveal any acute ischemic change. She was hypertensive. Blood work was unremarkable. No leukocytosis. Normal cardiac markers. Chest x-ray did not show any acute findings. The patient had taken aspirin. She was given Nitropaste and Tylenol. On reassessment she was feeling much better. Consultation was made with internal medicine for further evaluation and management. I gave my usual and customary discussion regarding this issue. Medication Reconcilliation Current Medication List: was personally reviewed by me Blood Pressure Screening Patient's blood pressure: Elevated blood pressure Blood pressure disposition: Referred to PCP Consults Time Called: 1105 Consulting Physician: Gracia Mario PA-C [facility] Hospitalist Returned Call: [phone] Discussed the patient's case. The patient will be evaluated for further treatment and disposition. Impression Primary Impression: Left sided chest pain Additional Impressions: Shortness of breath Headache Generalized weakness Scribe Attestation The scribe's documentation has been prepared under my direction and personally reviewed by me in its entirety. I confirm that the note above accurately reflects all work, treatment, procedures, and medical decision making performed by me. Departure Information Dispostion Being Evaluated By Hospitalist Referrals Marc Hoang M.D. (PCP) Patient Instructions My [facility] Problem Qualifiers
[2017-12-11] MEDS ORDERED: NITROGLYCERIN 2% OINTMENT 30GM TUBE EXT ONE (11:00)
[2017-12-11 11:05] VITALS: O2SAT 95; Ht 165.1 cm; Wt 94.0 kg
[2017-12-11] MEDS ORDERED: ACETAMINOPHEN 500 MG TAB PO STA (11:08)
[2017-12-11] MEDS ORDERED: ONDANSETRON INJ 2 MG/ML 2 ML VIAL IV PRN (12:15)
[2017-12-11] MEDS ORDERED: ACETAMINOPHEN 325 MG TAB PO PRN (12:15)
[2017-12-11] MEDS ORDERED: POLYETHYLENE (MIRALAX) 17 GM PACK PO PRN (12:15)
[2017-12-11] MEDS ORDERED: NITROGLYCERIN 0.4 MG SL PER TAB CHARGE SL PRN (12:15)
[2017-12-11] MEDS ORDERED: LORAZEPAM 0.5 MG TAB PO STA (12:26)
[2017-12-11] MEDS ORDERED: AMLO2.5T PO (12:35)
[2017-12-11] MEDS ORDERED: CYAN10005 PO (12:35)
[2017-12-11] MEDS ORDERED: LXP/10 PO (12:35)
[2017-12-11] MEDS ORDERED: TRAMADOL HCL 50 MG TAB PO PRN (12:45)
[2017-12-11] MEDS: IPRATROPIUM BROMIDE HFA INHALER INH SCH ×3 (13:00→20:38)
[2017-12-11] MEDS ORDERED: ASPIRIN 81 MG CHEW PO STA (13:12)
[2017-12-11] MEDS: NITROGLYCERIN 2% OINTMENT 30GM TUBE EXT SCH ×3 (13:15→23:49)
--- NOTE | 2017-12-11 13:31 | History and Physical ---
History & Physical Date & Time of Service: Dec 11, 2017 at 12:39 Chief Complaint: Chest Pain,Sob Primary Care Physician: Marc Hoang M.D. History of Present Illness Source: patient, family, clinic records, hospital records Pt is 87 y/o F with PMH CAD s/p PCI RCA & L circumflex with bare metal stents in 2013, paroxysmal a-fib on amiodarone not on coumadin 2/2 hematochezia, HTN, dyslipidemia, anxiety, GERD, hypothyroidism, DVT has IVC filter placed 2016 presented to ER with c/o lightheaded sensation and CP. Pt reports that hasn't been feeling herself the past several weeks. Pt feels this is related to changes in her BP medications. She had hx elevated BP and then some low BP's with not feeling well, so her amlodipine was changed from 5mg to 2.5mg daily. Pt felt hydralazine TID made her BP's higher, so she is now on hydralazine BID. Pt was having some LE edema by end of day and Lasix 40mg daily was added. She does admit to decreased edema since this was added. Her BP' s were 140-150s systolic over 60-70's diastolic. reports this week running 180 systolic. Pt feels her symptoms started after the addition of the lasix. She describes sensation of lightheadedness with diaphoresis to forehead and upper lip and she feels like might go back into a-fib, however she doesn't experience palpitations or elevated HR. Symptoms last seconds to minutes and self resolve and seem to occur with sitting/standing/walking. She was on her way to ER today for the lightheaded sensation when she developed non-radiating mid anterior CP pt describes as pulsating pressure that lasts a few minutes and resolves. She also reports sensation that "has too much air" sometimes and has to take deep breath to blow it out and then she needs to breathe through her mouth for awhile. This does not occur at same times as the CP or lightheaded sensation. Denies burping. Denies heartburn sensation, back pain, pain with breathing. She states that she has been using Atrovent QID "for awhile" to help with sensation that she needs to clear her throat. Denies dx lung disease. Pt reports intermittent BOURNE's also. This occurring since September. Had negative head CT at that time. Denies associated vision changes, neck pain, paresthesias or weakness. Denies fever/chills, N/V/D/C, syncope, vision changes, neck pain, paresthesias, extremity weakness, rashes, urinary symptoms. Hx admission 10/07/17-10/08/17 for CP with negative troponins. Had upper endoscopy and CP thought to be from hiatal hernia, esophageal dysmotility and gastroparesis. Of note, at that time pt had mixed up her medications and wasn't taking her ativan BID and instead was taking her detrol. Family reports pt had increased worry and forgetfullness when she wasn't taking her ativan. Pt states is taking it now. She is on omeprazole BID. Pt was prescribed lexapro by PCP in 10/2017 as thought may help with anxiety and possible with BOURNE's as thought might be anxiety also. Pt states that she doesn't believe she has been taking this medication and she doesn't know what it is (was filled from [facility] pharmacy in 2017) Pt had Holter monitor 12/08/17-12/09/17 for her lightheaded symptoms with thought she may be having some bradycardia. Results not back yet from Holter. Hx cardiac cath with bare metal stents to RCA, circumflex 2013 Echo 2013: EF: 50-55% Past Medical/Surgical History Medical Problems: (1) Anxiety Status: Chronic (2) Asthma Status: Chronic (3) CAD S/P percutaneous coronary angioplasty Permanent Comment: cath 09/2014 - multivessel disease s/p Bare metal stent of circumflex and RCA 09/30/14 Status: Chronic (4) CKD (chronic kidney disease), stage III Status: Chronic (5) Gastroparesis Status: Chronic (6) GERD (gastroesophageal reflux disease) Status: Chronic (7) H/O deep venous thrombosis Permanent Comment: IVC filter placed in 2016 Status: Chronic (8) History of colonic diverticulitis Status: Chronic (9) History of herpes zoster Status: Chronic (10) Hormone replacement therapy (postmenopausal) Status: Chronic (11) HTN (hypertension) Status: Chronic (12) Hypothyroidism Status: Chronic (13) Irritable bowel syndrome Status: Chronic (14) Osteoarthritis Status: Chronic (15) Osteoporosis Status: Chronic (16) Paroxysmal atrial fibrillation Status: Chronic Surgical Problems: (1) History of appendectomy Status: Chronic (2) History of bowel resection Permanent Comment: diverticular disease + incarcerated hernia Status: Chronic (3) History of total left knee replacement Status: Chronic (4) History of vein stripping Status: Chronic (5) Hx of cholecystectomy Status: Chronic (6) S/P oophorectomy Permanent Comment: right Status: Chronic (7) S/P rotator cuff repair Permanent Comment: right Status: Chronic (8) Status post coronary artery stent placement Status: Chronic (9) Status post exploratory laparotomy Permanent Comment: Dr. Carreon 10/07/15 for bowel obstruction + ischemic bowel lysis of adhesions, small bowel resection, primary side-side anastomosis Status: Chronic Family History Cancer MOTHER (Stomach CA) SISTER (Lymphoma) FH: multiple sclerosis MOTHER Heart disease FATHER Social History Smoking Status: Never Smoker Smokeless Tobacco Use: No Alcohol Use: none Drug Use: none Marital Status: Housing status: lives alone Occupational Status: retired Immunizations History of Influenza Vaccine: Yes Influenza Vaccine Date: Jul 10, 2015 History of Tetanus Vaccine?: Yes Tetanus Immunization Date: Dec 09, 2013 History of Pneumococcal: Yes Pneumococcal Date: Jan 11, 1998 History of Hepatitis B Vaccine: No Allergies Coded Allergies: Hydrochlorothiazide (Verified Allergy, Unknown, UNKNOWN, 10/07/17) Latex (Verified Allergy, Unknown, rash, red, 10/07/17) Nickel (Verified Allergy, Unknown, local skin irritation, 10/07/17) Home Medications Scheduled Amiodarone Hcl (Cordarone), 200 MG PO QAM Amlodipine (Norvasc), 2.5 MG PO DAILY Aspirin (Aspirin Chewable), 81 MG PO QAM Atorvastatin (Lipitor), 20 MG PO QPM Cholecalciferol (Vitamin D), 2 TAB PO QAM Cholestyramine (Questran), 1 PKT PO before meals Cyanocobalamin (Vitamin B-12), 1,000 MCG PO DAILY Denosumab (Prolia), 1 DOSE INJ [id number] Escitalopram Oxalate (Lexapro), 1 TAB PO DAILY Ferrous Sulfate (Kp Ferrous Sulfate), 1 TAB PO DAILY Furosemide (Furosemide), 40 MG PO DAILY Hydralazine Hcl (Apresoline), 25 MG PO BID Ipratropium [place] (Atrovent Hfa), 2 PUFFS INH QID Levothyroxine Sodium (Levothyroxine Sodium), 88 MCG PO DAILY Lorazepam (Ativan), 0.5 MG PO BID Magnesium Chloride (Slow-Mag Tab), 64 MG PO QAM Metoprolol Tartrate (Metoprolol Tartrate), 50 MG PO BID Nitroglycerin (Nitrostat), 0.4 MG UT PRN Omeprazole (Prilosec), 20 MG PO BID Primidone (Mysoline), 50 MG PO QAM Tolterodine Tartrate (Detrol), 1 MG PO BID Scheduled PRN Tramadol (Ultram), 50 MG PO TID PRN for Pain Review of Systems Constitutional: No fever, No chills, No weight loss Eyes: No worsening of vision, No eye pain, No redness, No discharge, No diplopia ENT: No hearing loss, No unusual epistaxis, No nasal symptoms, No sore throat, No trouble swallowing Respiratory: No cough, No wheezing, No dyspnea on exertion, No hemoptysis Cardiovascular: + chest pain (see HPI), No orthopnea, No PND, No edema Abdomen: No pain, No nausea, No vomiting, No diarrhea, No constipation, No GI bleeding Musculoskeletal: No joint pain (chronic joint pain - pt relates from arthritis and uses tylenol and tramadol), No calf pain Genitourinary - Female: No dysuria, No urinary frequency, No hematuria Neurologic: No paralysis, No numbness/tingling, No vertigo, No balance problems Endocrine: No excessive thirst, No excessive urination Hematologic / Lymphatic: No abnormal bleeding/bruising, No night sweats Integumentary: No rash, No itch Physical Exam Vital Signs Date Time Temp Pulse Resp B/P (MAP) Pulse Ox O2 Delivery O2 Flow Rate FiO2 12/11/17 11:46 61 20 182/87 95 Room Air 12/11/17 11:05 95 Room Air 12/11/17 10:37 55 18 180/71 95 Room Air 12/11/17 09:16 62 12/11/17 09:08 98 Room Air 12/11/17 09:08 98 Room Air 12/11/17 08:53 36.8 57 18 160/65 93 Room Air General Appearance: WD/WN, no apparent distress Head: normocephalic, atraumatic Eyes: normal inspection, PERRL, EOMI, sclerae normal ENT: hearing grossly normal, pharynx normal, + pertinent finding (mucous membranes moist) Neck: supple, no JVD, no carotid bruits Respiratory/Chest: lungs clear, normal breath sounds, no respiratory distress, no accessory muscle use, + pertinent finding (+tenderness to palpation epigastric region up to mid sternal region and bilateral mid/lower sternum. No rashes noted) Cardiovascular: regular rate, rhythm, no murmur, normal peripheral pulses Abdomen/GI: normal bowel sounds, soft, + pertinent finding (mild tenderness to palpation epigastric without rebound or guarding, no other abdominal tenderness ) Extremities/Musculoskelatal: no calf tenderness, normal capillary refill, normal range of motion, non-tender, + pedal edema (mild bilateral), + pertinent finding Neurologic/Psych: alert, oriented x 3, + pertinent finding (pt becomes anxious talking about her symptoms) Skin: normal color, warm/dry Diagnostics Laboratory Results Results Past 24 Hours Test 12/11/17 09:07 12/11/17 11:20 Range/Units White Blood Count 4.56 4.8-10.8 K/uL Red Blood Count 4.12 4.2-5.4 M/uL Hemoglobin 13.2 12.0-16.0 g/dL Hematocrit 39.5 37-47 % Mean Corpuscular Volume 95.9 80-100 fL Mean Corpuscular Hemoglobin 32.0 25-34 pg Mean Corpuscular Hemoglobin Concent 33.4 32-36 g/dl Platelet Count 219 130-400 K/uL Mean Platelet Volume 11.9 7.4-10.4 fL Neutrophils (%) (Auto) 61.2 % Lymphocytes (%) (Auto) 18.9 % Monocytes (%) (Auto) 11.6 % Eosinophils (%) (Auto) 7.2 % Basophils (%) (Auto) 1.1 % Neutrophils # (Auto) 2.79 1.4-6.5 K/uL Lymphocytes # (Auto) 0.86 1.2-3.4 K/uL Monocytes # (Auto) 0.53 0.11-0.59 K/uL Eosinophils # (Auto) 0.33 0-0.5 K/uL Basophils # (Auto) 0.05 0-0.2 K/uL RDW Standard Deviation 48.4 36.4-46.3 fL RDW Coefficient of Variation 13.8 11.5-14.5 % Immature Granulocyte % (Auto) 0.0 % Immature Granulocyte # (Auto) 0.00 0.00-0.02 K/uL Prothrombin Time 10.4 9.0-12.0 SECONDS Prothromb Time International Ratio 1.0 0.9-1.1 Activated Partial Thromboplast Time 25.1 21.0-31.0 SECONDS Partial Thromboplastin Ratio 1.0 Sodium Level 137 136-145 mmol/L Potassium Level 4.2 3.5-5.1 mmol/L Chloride Level 102 98-107 mmol/L Carbon Dioxide Level 27 21-32 mmol/L Anion Gap 7.0 3-11 mmol/L Blood Urea Nitrogen 16 7-18 mg/dl Creatinine 0.98 0.60-1.20 mg/dl Est Creatinine Clear Calc Drug Dose 47.3 ml/min Estimated GFR () 61.0 Estimated GFR (Non- 52.6 BUN/Creatinine Ratio 16.1 10-20 Random Glucose 120 70-99 mg/dl Calcium Level 8.8 8.5-10.1 mg/dl Magnesium Level 2.0 1.8-2.4 mg/dl Total Bilirubin 0.4 0.2-1 mg/dl Direct Bilirubin 0.1 0-0.2 mg/dl Aspartate Amino Transf (AST/SGOT) 31 15-37 U/L Alanine Aminotransferase (ALT/SGPT) 32 12-78 U/L Alkaline Phosphatase 95 45-117 U/L Total Creatine Kinase 57 26-192 U/L Creatine Kinase MB 0.6 0.5-3.6 ng/ml Creatine Kinase MB Ratio 1.1 0-3.0 Troponin I < 0.015 0-0.045 ng/ml Total Protein 7.3 6.4-8.2 gm/dl Albumin 3.4 3.4-5.0 gm/dl Thyroid Stimulating Hormone (TSH) 4.900 0.300-4.500 uIu/ml Diagnostic Radiology CXR: IMPRESSION: Mild stable cardiomegaly. Chronic and postoperative change. No acute process. EKG EKG: NSR, rate 61, no ST elevations noted. No significant changes from previous EKG Read by cardiology: Normal sinus rhythm Moderate voltage criteria for LVH, may be normal variant Borderline ECG When compared with ECG of 08-OCT-2017 07:12, No significant change was found Confirmed by STEVO CASTELLANOS ([id number]) on 12/11/2017 10:21:39 AM Impression Assessment and Plan Pt is 87 y/o F with c/o lightheaded sensation past couple of weeks, pt feels from addition of lasix. Developed mid sternal CP on way to ER today. Had out pt Holter monitor on 12/08/17 to r/o symptomatic bradycardia CHEST PAIN R/O ACS. Risk factors: HTN, hyperlipidemia, hx CAD CP intermittent this morning. Nitro paste placed in ER and pt denied recurrent CP, until my exam. Can reproduce CP on exam today, then pt noted another episode of CP lasting less than 30 seconds and NSR noted on monitor with rates in 60's. Pt given dose ativan. Negative initial troponin. No significant EKG changes from previous. DDX: GERD, anxiety, musculoskeletal. Suspect more anxiety /esophageal related -Monitor Vitals -Repeat EKG in am -Will trend troponin -ECHO -Cardiology consult -lipid panel in am, continue statin -ASA & beta damon -Will keep on nitro paste, Nitro prn CP and repeat EKG for CP HTN In ER BP: 160/65 and 180/71. Pt has nitro paste on. Pt with hx elevated BP than lower BP's and pt has had multiple med adjustments out pt by cardiology -continue to monitor -will continue home med dosages of hydralazine, amlodipine, lasix -appreciate cardiology recommendations LIGHTHEADED SENSATION No current lightheaded symptoms. No syncope. Pending Holter results. Will monitor on tele for any arrhythmias -orthostatics today monitor PAROXYSMAL A-FIB Sinus rhythm at this time. Not on coumadin secondary to hx recurrent hematochezia in past -continue metoprolol and amiodarone ANXIETY Pt prescribed lexapro, however she doesn't believe she started this. Pt appears anxious upon my exam -continue ativan -would recommend starting lexapro if she hasn't been taking it. Her family member is going to double check her pill bottles at home GERD/ESOPHAGEAL DYSMOTILITY Hx upper endoscopy 09/2017 and GI consult - hiatal hernia, esophageal dysmotility, and probable gastroparesis -continue omeprazole -may need to add prn med if cardiac r/o to see if helps with CP symptoms HYPOTHYROIDISM TSH: 4.9. Had TSH couple weeks ago that was 6.59 and her levothyroxine was increased from 75mcg to 88mcg -continue levothyroxine DYSLIPIDEMIA Lipid panel in 2016 - Total: 158, LDL: 41, HDL: 55, Triglycerides: 192 -lipid panel in am -continue statin DVT Prophylaxis -heparin Disposition admit tele DNR/DNI as per discussion with pt Follows with Dr Hoang for routine care Pt was seen with Dr Walker. See addendum Advanced Directives Existing Living Will: Yes Existing Power of Hat Steamer: No (DTR) Resuscitation Status DNR, DNI VTE Prophylaxis Will order VTE Prophylaxis: Yes Note ATTENDING ADDENDUM Record reviewed. Patient interviewed and examined. Care coordinated with Gracia Quiroz PA-C. Please refer to her documentation for patient's history. Briefly, 87-year-old female with history of ischemic heart disease, hypertension , GERD. Presents to ED complaining of intermittent lightheadedness. Experience midsternal chest pressure and some dyspnea on the way to the ED. Pain-free at time of my assessment. EXAM: General-no distress VS- as noted HEENT-anicteric Neck-no JVD; carotid pulses 2/2 Lungs-clear to auscultation and percussion Heart-regular rate and rhythm, S4, no murmur appreciated Abdomen-normal bowel sounds, soft, nontender Extremities-trace pretibial edema, no calf tenderness, pedal pulses intact Neuro-alert, oriented DATA: Troponin less than 0.015. Other lab studies as noted. Chest x-ray demonstrated cardiomegaly, no infiltrates, effusions, CHF. EKG demonstrated normal sinus rhythm with slight ST depression in lateral precordial leads similar to previous tracings. ASSESSMENT AND PLAN: Known coronary artery disease. Chest pain this morning en route to Emergency Department. Serum troponin normal. EKG shows normal sinus rhythm with slight lateral ST depression similar to previous tracings. Check serial troponins. Consult Cardiology. Intermittent lightheadedness. Had recent outpatient Holter monitor-results pending. Monitor on telemetry. Check orthostatic vital signs. Please refer to KIARRA Mario's documentation for discussion of other issues. Neo Walker MD . Additional Copies To Marc Hoang M.D.
[2017-12-11 16:00] VITALS: BP 140/89; PULSE 90; TEMP 36.8; O2SAT 93; O2SAT 95
--- NOTE | 2017-12-11 17:01 | ECHOCARDIOGRAM REPORT ---
*NOTICE TO RECEIVING DEMOCRAT AGENCY This information is strictly Confidential and protected under [place] law. [place] law prohibits you from making any further disclosure of this information unless further disclosure is expressly permitted by the written consent of the person to whom it pertains or is authorized by law. A general authorization for the release of medical or other information is not sufficient for this purpose. Hospital accepts no responsibility if the information is made available to any other person, INCLUDING THE PATIENT. Interpretation Summary * Name: AMEYA BEAN Study Date: 12/11/2017 03:01 PM BP: 182/87 mmHg * Patient Location: C.2T\S\S233\S\1 HR: 63 * : 1930 (M/d/yyyy) Gender: Female Height: 65 in * Age: 87 yrs Ethnicity: [place] Weight: 205 lb * Ordering Physician: Gracia Mario * Referring Physician: Self, Referred * Performed By: Roseann Flores RCS * * Reason For Study: CHEST PAIN * BSA: 2.0 m2 * -- Conclusions -- * Normal LV chamber size with moderate concentric LVH. * Normal LV systolic function, EF 55-60%. * No segmental left ventricular wall motion abnormalities are noted. * Grade II diastolic dysfunction. * Aortic valve sclerosis moderate, without significant aortic valvular stenosis. * Moderate left atrial enlargement. Procedure Details * A complete two-dimensional transthoracic echocardiogram was performed (2D, M-mode, Doppler and color flow Doppler). Left Ventricle * The left ventricle is normal in size. * There is moderate concentric left ventricular hypertrophy. * Left ventricular systolic function is normal. * No segmental left ventricular wall motion abnormalities are noted. * Ejection Fraction = 55-60%. * The left ventricular wall motion is normal. Right Ventricle * The right ventricular cavity size is normal (basal dimension <4.2 cm in right ventricular apical 4-chamber view). * The right ventricular systolic function is normal as assessed by tricuspid annular plane systolic excursion (TAPSE) (normal >1.5 cm). Atria * The left atrium is moderately dilated. * Right atrial size is normal. * No ASD detected; PFO is not assessed. Mitral Valve * There is mild mitral annular calcification. * There is no mitral valve stenosis. * There is no mitral regurgitation noted. Tricuspid Valve * The tricuspid valve is normal in structure and function. Aortic Valve * The aortic valve is trileaflet. * Aortic valve sclerosis moderate, without significant aortic valvular stenosis. * There is no significant aortic regurgitation. Pulmonic Valve * The pulmonary valve is not well seen, but the Doppler examination is normal without significant regurgitation or stenosis. Great Vessels * The aortic root is normal size. Pericardium/Pleural * There is no pericardial effusion. Left Ventricular Diastolic Function * Diastolic dysfunction, Grade II (pseudonormalization pattern). MMode 2D Measurements and Calculations IVSd 1.7 cm IVSs 1.9 cm LVIDd 4.0 cm LVIDs 2.4 cm LVPWd 1.5 cm LVPWs 1.7 cm IVS/LVPW 1.1 FS 39.2 % EDV(Teich) 69.9 ml ESV(Teich) 20.8 ml EF(Teich) 70.2 % EDV(cubed) 63.9 ml ESV(cubed) 14.4 ml EF(cubed) 77.5 % % IVS thick 17.9 % % LVPW thick 14.2 % LV mass(C)d 253.6 grams LV mass(C)dI 126.8 grams/m\S\2 LV mass(C)s 178.4 grams LV mass(C)sI 89.2 grams/m\S\2 SV(Teich) 49.1 ml SI(Teich) 24.5 ml/m\S\2 SV(cubed) 49.5 ml SI(cubed) 24.8 ml/m\S\2 Ao root diam 3.5 cm Ao root area 9.5 cm\S\2 ACS 1.8 cm LA dimension 4.2 cm LA/Ao 1.2 LVOT diam 2.0 cm LVOT area 3.0 cm\S\2 LVAd ap4 34.2 cm\S\2 LVLd ap4 7.9 cm EDV(MOD-sp4) 122.4 ml EDV(sp4-el) 125.5 ml LVAs ap4 22.5 cm\S\2 LVLs ap4 6.8 cm ESV(MOD-sp4) 63.7 ml ESV(sp4-el) 63.3 ml EF(MOD-sp4) 47.9 % EF(sp4-el) 49.5 % LVAd ap2 33.1 cm\S\2 LVLd ap2 8.2 cm EDV(MOD-sp2) 109.8 ml EDV(sp2-el) 113.5 ml LVAs ap2 23.4 cm\S\2 LVLs ap2 7.2 cm ESV(MOD-sp2) 63.5 ml ESV(sp2-el) 64.8 ml EF(MOD-sp2) 42.2 % EF(sp2-el) 42.9 % LVLd %diff 3.7 % EDV(MOD-bp) 119.7 ml LVLs %diff 5.1 % ESV(MOD-bp) 64.4 ml EF(MOD-bp) 46.2 % SV(MOD-sp4) 58.7 ml SI(MOD-sp4) 29.4 ml/m\S\2 SV(MOD-sp2) 46.3 ml SI(MOD-sp2) 23.2 ml/m\S\2 SV(MOD-bp) 55.3 ml SI(MOD-bp) 27.7 ml/m\S\2 SV(sp4-el) 62.2 ml SI(sp4-el) 31.1 ml/m\S\2 SV(sp2-el) 48.6 ml SI(sp2-el) 24.3 ml/m\S\2 Doppler Measurements and Calculations MV E max russell 126.2 cm/sec MV A max russell 87.9 cm/sec MV E/A 1.4 MV P1/2t max russell 114.5 cm/sec MV P1/2t 95.3 msec MVA(P1/2t) 2.3 cm\S\2 MV dec slope 351.7 cm/sec\S\2 MV dec time 0.23 sec Ao V2 max 121.0 cm/sec Ao max PG 5.9 mmHg Ao max PG (full) 3.2 mmHg RAVI(V,A) 2.0 cm\S\2 RAVI(V,D) 2.0 cm\S\2 LV V1 max PG 2.7 mmHg LV V1 max 81.4 cm/sec PA V2 max 93.8 cm/sec PA max PG 3.5 mmHg PI max russell 210.3 cm/sec PI max PG 17.7 mmHg PI dec slope 260.0 cm/sec\S\2 PI P1/2t 236.9 msec
[2017-12-11] MEDS ORDERED: IV FLUIDS COMPLETED PRN (17:30)
[2017-12-11 19:23] VITALS: BP 145/65; PULSE 57; TEMP 36.7; O2SAT 91
[2017-12-11 20:00] VITALS: O2SAT 91
[2017-12-11] MEDS: LORAZEPAM 0.5 MG TAB PO SCH (20:37)
[2017-12-11] MEDS: PANTOprazole SOD 40 MG TAB PO SCH (20:39)
[2017-12-11] MEDS: METOPROLOL TARTRATE 50 MG TAB PO SCH (20:39)
[2017-12-11] MEDS: TOLTERODINE TARTRATE 1 MG TAB PO SCH (20:39)
[2017-12-11] MEDS: HEPARIN SOD 5000 UNIT/0.5 ML CARP SQ SCH (20:41)
[2017-12-11] MEDS ORDERED: ATORVASTATIN 20 MG TAB PO SCH (21:00)
--- NOTE | 2017-12-11 22:25 | CARDIOLOGY CONSULTATION ---
DATE OF CONSULTATION: 12/11/2017 INPATIENT CONSULTATION CONSULTATION REQUESTED BY: Dr. Walker. REASON FOR CONSULTATION: Chest pain. HISTORY OF PRESENT ILLNESS: Mrs. Amanda is a very pleasant 87-year-old woman who normally follows with Dr. Dora Amanda and Dr. Gregory of our cardiology practice. She presented to [facility] Emergency Department on 12/11/2012 with a complaint of chest discomfort and lightheadedness. The patient states her symptoms really started approximately at the end of October, when she was seen as an outpatient and was having some lightheaded spells and lower extremity edema. At that time, her amlodipine and hydralazine dosages were lowered to prevent possible hypotension as a cause of her lightheadedness. She was also placed on Lasix for her lower extremity edema and she states that ever since then she has been feeling woozy and a little unsteady on her feet. She admits that she does not drink much water throughout the day and does get lightheaded very easily when standing up from a seated position. These symptoms seemed to worsen as of late, especially this morning when she tried to get up out of bed, she was significantly lightheaded and had to sit back down. She became concerned and called her daughter to come over and while she was waiting for her daughter, she developed chest discomfort. She described the discomfort as a substernal pressure sensation that was similar to her most previous episode of chest pain 2 months ago when she was admitted to [facility] at which time she was found that she was not taking her Ativan by mistake. She states that once her daughter arrived, her stress seemed to alleviate and her chest pain resolved. Currently, in the Emergency Department, she states that she is feeling better, but is just concerned that her medication seemed to be not right. PAST SURGICAL HISTORY: 1. PTCA to the RCA and circumflex with bare metal stents in 2013. 2. IVC filter placement. 3. Lumbar spinal surgery. 4. Hemicolectomy. 5. Knee replacement. MEDICAL ILLNESSES: 1. Coronary artery disease. 2. History of deep venous thrombosis status post IVC filter. 3. History of paroxysmal atrial fibrillation on chronic amiodarone, not on Coumadin due to hematochezia. 4. Hypertension. 5. Dyslipidemia. 6. Anxiety. 7. GERD. 8. Stage III chronic kidney disease. FAMILY HISTORY: Noncontributory. SOCIAL HISTORY: Denies any alcohol, tobacco or recreational drug use. She lives at home by herself. ALLERGIES: 1. NICKEL. 2. HYDRODIURIL. REVIEW OF SYSTEMS: As per HPI, all other review of systems reviewed and negative at this time. MEDICATIONS AN OUTPATIENT: 1. Amiodarone 200 mg daily. 2. Amlodipine 2.5 mg daily. 3. Aspirin 81 mg daily. 4. Atorvastatin 20 mg daily. 5. Lasix 40 mg daily. 6. Hydralazine 25 mg b.i.d. 7. Levothyroxine daily. 8. Metoprolol 50 mg b.i.d. 9. Detrol b.i.d. 10. Tramadol p.r.n. 11. Ativan b.i.d. PHYSICAL EXAMINATION: VITAL SIGNS: Temperature 36.8, pulse 61, respiratory rate 12, blood pressure 147/58. GENERAL: Awake, alert, oriented x3 in no acute distress. HEENT: Normocephalic, atraumatic. Pupils equal, round react to light and accommodation. Extraocular muscles intact. Anicteric sclerae. Moist mucous membranes. NECK: No JVD, no bruit. CARDIOVASCULAR: Regular. Positive S4. Normal S1 and S2. No S3. No murmurs or rubs. PULMONARY: Clear to auscultation bilaterally. No rales, rhonchi, or wheezing. ABDOMEN: Bowel sounds x4, soft. No rebound, guarding, tenderness. No organomegaly. EXTREMITIES: No clubbing, cyanosis or edema. +2 pedal pulses bilaterally. SKIN: Warm and dry. TEST RESULTS AND LABORATORY STUDIES OF SIGNIFICANCE: Sodium 137, potassium 4.2, BUN 16, creatinine of 1. TSH of 4.9. Troponin negative. CPK of 57. A 12-lead EKG performed in the Emergency Department independently reviewed at this time shows normal sinus rhythm at 61 beats per minute, LVH criteria is present, leftward axis deviation, no signs of active ischemia, no significant change compared to previous studies. IMPRESSION: 1. Chest pain likely secondary to anxiety. 2. Lightheadedness, possibly due to diuretic therapy. 3. Hypertension, labile. 4. Hypothyroidism. RECOMMENDATIONS: It was my pleasure to see Mrs. Amanda in consultation today. In regards to her chest discomfort, given the fact that it is similar to the pain she had when she was not taking her Ativan and occurred in the setting of a psychological stressors, I do believe it is most likely anxiety related; however, for completeness sake at this time, a full set of troponins will be obtained as well as a resting echocardiogram. In terms of her lightheadedness and wooziness, I believe she is most likely over diuresed, even though she is not profoundly intravascularly volume depleted. So at this time, we will discontinue her Lasix and follow her volume status clinically. Also, to consider is the fact that her lower extremity edema might be secondary to her amlodipine, so that I will also be continued at this time. For further blood pressure control, I will start her on lisinopril 10 mg daily. She does not have a chart history of adverse reaction to the medication, but she does have a history of hyperkalemia, so her lab work will need to be followed closely.
[2017-12-11 23:48] VITALS: BP 115/72
[2017-12-12] VITALS (7 sets, daily range): BP systolic 103–154; BP diastolic 56–74; PULSE 59–69; TEMP 36.9–37.3; O2SAT 90–94
[2017-12-12] MEDS: NITROGLYCERIN 2% OINTMENT 30GM TUBE EXT SCH (05:52)
[2017-12-12] MEDS ORDERED: LEVOTHYROXINE 88 MCG TAB PO SCH (06:00)
[2017-12-12 06:37] LABS: HEMATOCRIT 40.7 % (37-47); HEMOGLOBIN 13.6 g/dL (12.0-16.0); MEAN CELL VOLUME 94.7 fL (80-100); MEAN CORPUSCULAR HEMOGLOBIN 31.6 pg (25-34); MEAN CORPUSCULAR HGB CONC 33.4 g/dl (32-36); MEAN PLATELET VOLUME 11.8 fL (7.4-10.4); PLATELET COUNT 225 K/uL (130-400); RED CELL DISTRIBUTION WIDTH SD 48.1 fL (36.4-46.3)
[2017-12-12 07:13] LABS: CALCIUM 9.1 mg/dl (8.5-10.1); CREATININE 1.02 mg/dl (0.60-1.20); POTASSIUM 4.3 mmol/L (3.5-5.1)
[2017-12-12] MEDS: LORAZEPAM 0.5 MG TAB PO SCH (07:34)
[2017-12-12] MEDS: IPRATROPIUM BROMIDE HFA INHALER INH SCH ×2 (07:35→13:50)
[2017-12-12] MEDS: PANTOprazole SOD 40 MG TAB PO SCH (07:39)
[2017-12-12] MEDS: TOLTERODINE TARTRATE 1 MG TAB PO SCH (07:39)
[2017-12-12] MEDS: METOPROLOL TARTRATE 50 MG TAB PO SCH (07:42)
[2017-12-12] MEDS: HEPARIN SOD 5000 UNIT/0.5 ML CARP SQ SCH (07:44)
[2017-12-12] MEDS ORDERED: AMLODIPINE BESYLATE 5 MG TAB PO SCH (09:00)
[2017-12-12] MEDS ORDERED: CHOLECALCIFEROL 1000 INTER.UNIT TAB PO SCH (09:00)
[2017-12-12] MEDS ORDERED: AMIODARONE 200 MG TAB PO SCH (09:00)
[2017-12-12] MEDS ORDERED: FERROUS SULFATE 325 MG TAB PO SCH (09:00)
[2017-12-12] MEDS ORDERED: MAGNESIUM CHLORIDE 64MG DELAYED REL TAB PO SCH (09:00)
[2017-12-12] MEDS ORDERED: ASPIRIN 81 MG CHEW PO SCH (09:00)
[2017-12-12] MEDS ORDERED: CYANOCOBALAMIN 500 MCG TAB (VIT B-12) PO SCH (09:00)
[2017-12-12] MEDS ORDERED: PRIMIDONE 50 MG TAB PO SCH (09:00)
[2017-12-12] MEDS ORDERED: ESCITALOPRAM OXALATE 10 MG TAB PO SCH (09:00)
[2017-12-12] MEDS ORDERED: LISINOPRIL 10 MG TAB PO SCH (09:00)
[2017-12-12] MEDS ORDERED: FUROSEMIDE 40 MG TAB PO SCH (09:00)
--- NOTE | 2017-12-12 11:00 | Progress Note ---
Internal Med Progress Note Date of Service: Dec 12, 2017. Provider Documentation: SUBJECTIVE: Seen and examined at bedside Doing well today States chest pain, dizziness resolved Denies nausea, SOB No other complains Eager to get discharged OBJECTIVE: Vital Signs-as noted below Physical Exam: General Appearance:Moderately built and nourished, no apparent distress Head: normocephalic, Atraumatic Eyes: normal inspection, EOMI, PERRL Neck: supple, Trachea midline Respiratory/Chest: Normal breath sounds, CTA Cardiovascular: S1, S2, No murmur Abdomen/GI:Soft, Non tender, Bowel sounds present Extremities/Musculoskelatal:normal inspection, Trace edema Neurologic/Psych:AAOX3, grossly no focal neurological deficits Skin: normal color, warm Lab data as noted below. ASSESSMENT & PLAN: Patient is an 87 yr female who presents with lightheaded and mid sternal chest pain. Patient had Holter monitor on 12/08/17 to r/o symptomatic bradycardia Chest Pain likely secondary to anxiety EKG: No signs of acute Ischemia ECHO:No segmental left ventricular wall motion abnormalities Troponin X3: negative Continue current medications Continue Ativan Appreciate cardiology Input Dizziness likely related to meds Discontinued lasix 2/2 dizziness Discontinue Amlodipine 2/2 leg swellings Started on lisinopril, compression stockings HTN Stable Continue meds as above appreciate cardiology recommendations P.Afib: In Sinus Not on coumadin secondary to hx recurrent hematochezia in past continue metoprolol and amiodarone Anxiety: Continue Lexapro, Ativan GERD: Esophageal dysmotility H/O upper endoscopy 09/2017 and GI consult - hiatal hernia, esophageal dysmotility, and probable gastroparesis continue omeprazole Hypothyroidism: continue levothyroxine Dyslipidemia: continue statin DVT Px: heparin SQ Code Status: DNR/DNI Disposition: Plan to discharge home today Follow up with Dr Hoang for routine care on December 19, 2017 at 1:55AM Follow up with your House Mover on December 29, 2017 at 10:45AM as scheduled Seek immediate medical attention if your symptoms reoccur or worsen Get blood test (Basic Metabolic Panel) in 1 week and follow up with your doctor with results Continue using Compression Stockings as advised Medication changes: You were discontinued on lasix and Amlodipine You were started on lisinopril for blood pressure control Vital Signs: Date Time Temp Pulse Resp B/P (MAP) Pulse Ox O2 Delivery O2 Flow Rate FiO2 12/12/17 10:13 69 103/67 (79) 59 121/66 (84) 60 108/56 (73) 12/12/17 08:00 Room Air 12/12/17 08:00 36.9 61 22 153/68 (96) 94 12/12/17 05:50 62 139/61 (87) 12/12/17 04:32 37.2 62 18 136/68 (90) 90 12/12/17 04:00 Room Air 12/12/17 00:48 37.3 65 20 149/71 (97) 92 Room Air 12/11/17 23:50 Room Air 12/11/17 23:48 115/72 (86) 12/11/17 20:00 91 Room Air 12/11/17 19:23 36.7 57 18 145/65 (91) 91 Room Air 12/11/17 16:07 36.8 61 20 147/58 95 12/11/17 16:00 36.8 90 20 140/89 (106) 93 Room Air 12/11/17 16:00 95 Room Air 12/11/17 15:15 61 147/58 12/11/17 11:46 61 20 182/87 95 Room Air 12/11/17 11:05 95 Room Air Lab Results: Results Past 24 Hours Test 12/11/17 11:20 12/11/17 16:33 12/11/17 17:01 12/11/17 21:01 Range/Units Urine Color YELLOW Urine Appearance CLEAR CLEAR Urine pH 6.5 4.5-7.5 Urine Specific [place] 1.012 1.000-1.030 Urine Protein NEG NEG Urine Glucose (UA) NEG NEG Urine Ketones NEG NEG Urine Occult Blood NEG NEG Urine Nitrite NEG NEG Urine Bilirubin NEG NEG Urine Urobilinogen NEG NEG Urine Leukocyte Esterase TRACE NEG Urine WBC (Auto) 5-10 0-5 /hpf Urine RBC (Auto) 0-4 0-4 /hpf Urine Hyaline Casts (Auto) 1-5 0-5 /lpf Urine Epithelial Cells (Auto) 20-30 0-5 /lpf Urine Bacteria (Auto) NEG NEG Troponin I < 0.015 < 0.015 0-0.045 ng/ml Bedside Glucose 105 70-90 mg/dl Test 12/12/17 06:06 Range/Units White Blood Count 4.90 4.8-10.8 K/uL Red Blood Count 4.30 4.2-5.4 M/uL Hemoglobin 13.6 12.0-16.0 g/dL Hematocrit 40.7 37-47 % Mean Corpuscular Volume 94.7 80-100 fL Mean Corpuscular Hemoglobin 31.6 25-34 pg Mean Corpuscular Hemoglobin Concent 33.4 32-36 g/dl RDW Standard Deviation 48.1 36.4-46.3 fL RDW Coefficient of Variation 14.0 11.5-14.5 % Platelet Count 225 130-400 K/uL Mean Platelet Volume 11.8 7.4-10.4 fL Sodium Level 137 136-145 mmol/L Potassium Level 4.3 3.5-5.1 mmol/L Chloride Level 103 98-107 mmol/L Carbon Dioxide Level 30 21-32 mmol/L Anion Gap 5.0 3-11 mmol/L Blood Urea Nitrogen 14 7-18 mg/dl Creatinine 1.02 0.60-1.20 mg/dl Est Creatinine Clear Calc Drug Dose 45.7 ml/min Estimated GFR () 58.1 Estimated GFR (Non- 50.1 BUN/Creatinine Ratio 14.1 10-20 Random Glucose 99 70-99 mg/dl Calcium Level 9.1 8.5-10.1 mg/dl Triglycerides Level 163 0-150 mg/dl Cholesterol Level 119 0-200 mg/dl HDL Cholesterol 49 mg/dl LDL Cholesterol, Calculated 37 mg/dl VLDL Cholesterol, Calculated 33 mg/dl Cholesterol/HDL Ratio 2.4
[2017-12-12] MEDS ORDERED: LSN10 PO (11:02)
--- NOTE | 2017-12-12 11:03 | Discharge Summary ---
Discharge Summary Date of Service Dec 12, 2017. Discharge Summary Admission Date: Dec 11, 2017 at 12:20 Discharge Date: Dec 12, 2017 Discharge Disposition: Home Principal Diagnosis: Chest Pain Procedures: CXR: Mild stable cardiomegaly. Chronic and postoperative change. No acute process. ECHO: * Normal LV chamber size with moderate concentric LVH. * Normal LV systolic function, EF 55-60%. * No segmental left ventricular wall motion abnormalities are noted. * Grade II diastolic dysfunction. * Aortic valve sclerosis moderate, without significant aortic valvular stenosis. * Moderate left atrial enlargement. Consultations: Cardiology Pending Studies/Follow-Up: Follow up with Dr Hoang for routine care on December 19, 2017 at 1:55AM Follow up with your Frame Catcher on December 29, 2017 at 10:45AM as scheduled Seek immediate medical attention if your symptoms reoccur or worsen Get blood test (Basic Metabolic Panel) in 1 week and follow up with your doctor with results Continue using Compression Stockings as advised Medication changes: You were discontinued on lasix and Amlodipine You were started on lisinopril for blood pressure control Medication Reconciliation New Medications: Lisinopril (Zestril) 10 Mg Tab 10 MG PO QAM for 30 Days, #30 TAB 1 Refill Continued Medications: Amiodarone Hcl (Cordarone) 200 Mg Tab 200 MG PO QAM, TAB Aspirin (Aspirin Chewable) 81 Mg Chew 81 MG PO QAM Atorvastatin (Lipitor) 20 Mg Tab 20 MG PO QPM, TAB Cholecalciferol (Vitamin D) 1,000 Unit Tab 2 TAB PO QAM Cholestyramine (Questran) 4 Gm Pow 1 PKT PO before meals Cyanocobalamin (Vitamin B-12) 1,000 Mcg Tab 1000 MCG PO DAILY, TAB Denosumab (Prolia) 60 Mg/Ml [place] 1 DOSE INJ [id number] Escitalopram Oxalate (Lexapro) 10 Mg Tab 1 TAB PO DAILY for 90 Days, #90 TAB 3 Refills Ferrous Sulfate (Kp Ferrous Sulfate) 325 Mg Tab 1 TAB PO DAILY for 30 Days, #30 TAB 3 Refills Hydralazine Hcl (Apresoline) 25 Mg Tab 25 MG PO BID, TAB Ipratropium [place] (Atrovent Hfa) 200 Puffs/3400 Mcg Aers 2 PUFFS INH QID, #12.9 GM 3 Refills Levothyroxine Sodium (Levothyroxine Sodium) 88 Mcg Tab 88 MCG PO DAILY Lorazepam (Ativan) 0.5 Mg Tab 0.5 MG PO BID, TAB Magnesium Chloride (Slow-Mag Tab) 64 Mg Tabcr 64 MG PO QAM Metoprolol Tartrate (Metoprolol Tartrate) 50 Mg Tab 50 MG PO BID Nitroglycerin (Nitrostat) 0.4 Mg Sub 0.4 MG UT PRN for 30 Days, #1 BTL 1 Refill Omeprazole (Prilosec) 20 Mg Capcr 20 MG PO BID, CAP Primidone (Mysoline) 50 Mg Tab 50 MG PO QAM, TAB Tolterodine Tartrate (Detrol) 1 Mg Tab 1 MG PO BID, TAB Tramadol (Ultram) 50 Mg Tab 50 MG PO TID PRN for Pain, TAB Discontinued Medications: Amlodipine (Norvasc) 2.5 Mg Tab 2.5 MG PO DAILY, TAB Furosemide (Furosemide) 20 Mg Tab 40 MG PO DAILY Admission Information HPI (per Admitting provider): Pt is 87 y/o F with PMH CAD s/p PCI RCA & L circumflex with bare metal stents in 2013, paroxysmal a-fib on amiodarone not on coumadin 2/2 hematochezia, HTN, dyslipidemia, anxiety, GERD, hypothyroidism, DVT has IVC filter placed 2016 presented to ER with c/o lightheaded sensation and CP. Pt reports that hasn't been feeling herself the past several weeks. Pt feels this is related to changes in her BP medications. She had hx elevated BP and then some low BP's with not feeling well, so her amlodipine was changed from 5mg to 2.5mg daily. Pt felt hydralazine TID made her BP's higher, so she is now on hydralazine BID. Pt was having some LE edema by end of day and Lasix 40mg daily was added. She does admit to decreased edema since this was added. Her BP' s were 140-150s systolic over 60-70's diastolic. reports this week running 180 systolic. Pt feels her symptoms started after the addition of the lasix. She describes sensation of lightheadedness with diaphoresis to forehead and upper lip and she feels like might go back into a-fib, however she doesn't experience palpitations or elevated HR. Symptoms last seconds to minutes and self resolve and seem to occur with sitting/standing/walking. She was on her way to ER today for the lightheaded sensation when she developed non-radiating mid anterior CP pt describes as pulsating pressure that lasts a few minutes and resolves. She also reports sensation that "has too much air" sometimes and has to take deep breath to blow it out and then she needs to breathe through her mouth for awhile. This does not occur at same times as the CP or lightheaded sensation. Denies burping. Denies heartburn sensation, back pain, pain with breathing. She states that she has been using Atrovent QID "for awhile" to help with sensation that she needs to clear her throat. Denies dx lung disease. Pt reports intermittent BOURNE's also. This occurring since September. Had negative head CT at that time. Denies associated vision changes, neck pain, paresthesias or weakness. Denies fever/chills, N/V/D/C, syncope, vision changes, neck pain, paresthesias, extremity weakness, rashes, urinary symptoms. Hx admission 10/07/17-10/08/17 for CP with negative troponins. Had upper endoscopy and CP thought to be from hiatal hernia, esophageal dysmotility and gastroparesis. Of note, at that time pt had mixed up her medications and wasn't taking her ativan BID and instead was taking her detrol. Family reports pt had increased worry and forgetfullness when she wasn't taking her ativan. Pt states is taking it now. She is on omeprazole BID. Pt was prescribed lexapro by PCP in 10/2017 as thought may help with anxiety and possible with BOURNE's as thought might be anxiety also. Pt states that she doesn't believe she has been taking this medication and she doesn't know what it is (was filled from [facility] pharmacy in 2017) Pt had Holter monitor 12/08/17-12/09/17 for her lightheaded symptoms with thought she may be having some bradycardia. Results not back yet from Holter. Hx cardiac cath with bare metal stents to RCA, circumflex 2013 Echo 2013: EF: 50-55% Physical Exam (per Admitting): General Appearance: WD/WN, no apparent distress Head: normocephalic, atraumatic Eyes: normal inspection, PERRL, EOMI, sclerae normal ENT: hearing grossly normal, pharynx normal, + pertinent finding (mucous membranes moist) Neck: supple, no JVD, no carotid bruits Respiratory/Chest: lungs clear, normal breath sounds, no respiratory distress, no accessory muscle use, + pertinent finding (+tenderness to palpation epigastric region up to mid sternal region and bilateral mid/lower sternum. No rashes noted) Cardiovascular: regular rate, rhythm, no murmur, normal peripheral pulses Abdomen/GI: normal bowel sounds, soft, + pertinent finding (mild tenderness to palpation epigastric without rebound or guarding, no other abdominal tenderness ) Extremities/Musculoskelatal: no calf tenderness, normal capillary refill, normal range of motion, non-tender, + pedal edema (mild bilateral), + pertinent finding Neurologic/Psych: alert, oriented x 3, + pertinent finding (pt becomes anxious talking about her symptoms) Skin: normal color, warm/dry Hospital Course Patient is an 87 yr female who presents with lightheaded and mid sternal chest pain. Patient had Holter monitor on 12/08/17 to r/o symptomatic bradycardia Chest Pain likely secondary to anxiety EKG: No signs of acute Ischemia ECHO:No segmental left ventricular wall motion abnormalities Troponin X3: negative Continue current medications Continue Ativan Appreciate cardiology Input Dizziness likely related to meds Discontinued lasix 2/2 dizziness Discontinue Amlodipine 2/2 leg swellings Started on lisinopril, compression stockings HTN Stable Continue meds as above appreciate cardiology recommendations P.Afib: In Sinus Not on coumadin secondary to hx recurrent hematochezia in past continue metoprolol and amiodarone Anxiety: Continue Lexapro, Ativan GERD: Esophageal dysmotility H/O upper endoscopy 09/2017 and GI consult - hiatal hernia, esophageal dysmotility, and probable gastroparesis continue omeprazole Hypothyroidism: continue levothyroxine Dyslipidemia: continue statin DVT Px: heparin SQ Code Status: DNR/DNI Disposition: Plan to discharge home today Follow up with Dr Hoang for routine care on December 19, 2017 at 1:55AM Follow up with your Frame Catcher on December 29, 2017 at 10:45AM as scheduled Seek immediate medical attention if your symptoms reoccur or worsen Get blood test (Basic Metabolic Panel) in 1 week and follow up with your doctor with results Continue using Compression Stockings as advised Medication changes: You were discontinued on lasix and Amlodipine You were started on lisinopril for blood pressure control Total time spent on discharge = This includes examination of the patient, discharge planning, medication reconciliation, and communication with other providers. Discharge Instructions Discharge Instructions Date of Service Dec 12, 2017. Admission Reason for Admission: Chest Pain Discharge Discharge Diagnosis / Problem: Chest Pain Discharge Goals Goal(s): Decrease discomfort, Improve function Activity Recommendations Activity Limitations: resume your previous activity Exercise/Sports Limitations: as tolerated . Instructions / Follow-Up Instructions / Follow-Up Follow up with Dr Hoang for routine care on December 19, 2017 at 1:55AM Follow up with your Frame Catcher on December 29, 2017 at 10:45AM as scheduled Seek immediate medical attention if your symptoms reoccur or worsen Get blood test (Basic Metabolic Panel) in 1 week and follow up with your doctor with results Continue using Compression Stockings as advised Medication changes: You were discontinued on lasix and Amlodipine You were started on lisinopril for blood pressure control Current Hospital Diet Patient's current hospital diet: AHA Diet (Heart Healthy) Discharge Diet Recommended Diet: AHA Diet (Heart Healthy) Pending Studies Studies pending at discharge: no Laboratory Results Lipid Panel Test 12/12/17 06:06 Range/Units Triglycerides Level 163 H 0-150 mg/dl Cholesterol Level 119 0-200 mg/dl HDL Cholesterol 49 mg/dl Cholesterol/HDL Ratio 2.4 LDL Cholesterol, Calculated 37 mg/dl Medical Emergencies . Who to Call and When: Medical Emergencies: If at any time you feel your situation is an emergency, please call 911 immediately. . Non-Emergent Contact Non-Emergency issues call your: Primary Care Provider, Frame Catcher Call Non-Emergent contact if: you have a fever, your pain is not controlled, your pain is worsening, your pain is unusual for you, your pain is concerning you, you have any medication questions Seek immediate medical attention if your symptoms reoccur or worsen . . "Provider Documentation" section prepared by Antwon Cross. . <Electronically signed by Antwon Cross MD> Signed: 12/12/17 [id number] Signed: The status of this report is Signed * If report status is Draft, the document has not been finalized by the responsible provider.
--- NOTE | 2017-12-12 11:44 | Cardiology Follow-Up ---
Subjective Subjective Date of Service: Dec 12, 2017. Pt evaluation today including: conversation w/ patient, physical exam, chart review, lab review, review of studies, review of inpatient medication list Additional Details: Pt seen and examined, states that she feels much better today. Chest pain and lightheadedness have resolved. Denies palpitations or dizziness. States that she feels back to normal. Tele reviewed: sinus rhythm without arrhythmia or significant ectopy. Problem List Medical Problems: (1) Generalized weakness Status: Acute (2) Headache Status: Acute (3) Left sided chest pain Status: Acute (4) Precordial chest pain Status: Acute (5) Precordial chest pain Status: Acute (6) Shortness of breath Status: Acute (7) Small bowel obstruction Status: Acute (8) Vomiting Status: Acute Review of Systems Respiratory: No see HPI, No cough, No sputum, No wheezing, No shortness of breath, No dyspnea on exertion, No dyspnea at rest, No hemoptysis, No problem reported Cardiac: No see HPI, No chest pain, No orthopnea, No PND, No edema, No claudication, No palpitations, No problem reported Objective Vital Signs Last Vital Signs Documentation Date Time Temp Pulse Resp B/P (MAP) Pulse Ox O2 Delivery O2 Flow Rate FiO2 12/12/17 11:08 36.9 60 22 94 Room Air 12/12/17 10:13 103/67 (79) 121/66 (84) 108/56 (73) Physical Exam: General Appearance: WD/WN, no apparent distress Eyes: bilateral eyes normal inspection, bilateral eyes PERRL, bilateral eyes EOMI ENT: normal ENT inspection, hearing grossly normal, pharynx normal Neck: supple, no adenopathy, thyroid normal, no JVD, no carotid bruits, trachea midline Respiratory/Chest: chest non-tender, lungs clear, normal breath sounds, no respiratory distress, no accessory muscle use Cardiovascular: regular rate, rhythm, no edema, no JVD, no murmur, + gallop/S4 Abdomen: normal bowel sounds, non tender, soft, no organomegaly Extremities: non-tender, normal inspection, no pedal edema, no calf tenderness Neurologic/Psychiatric: graduate advisor II-XII nml as tested, no motor/sensory deficits, alert, normal mood/affect, oriented x 3 Skin: normal color, warm/dry, no rash Lymphatic: no adenopathy Assessment and Plan 1. chest pain resolved secondary to anxiety cont ativan 2. lightheadedness likely secondary to diuretic use resolved with discontinuation will now use compression stockings for lower extremity edema amlodipine also discontinued as a possible source of edema 3. hypertension well controlled with addition of lisinopril if remains well controlled after lunch today would be ok to d/c to home and f /u as outpatient
== END 2017-12-12 14:14 | disposition home or self-care (01) ==
LOC: C.EDB 08:52 → C.EDINP 12:20 → ENRESERV 13:38 → C.2T 16:10
PROVIDERS: ADMIT Hospitalist; ATTEND Internal Medicine
DX: R07.9 Chest pain, unspecified (principal); R42 Dizziness and giddiness; E78.5 Hyperlipidemia, unspecified; K21.9 Gastro-esophageal reflux disease without esophagitis; I48.0 Paroxysmal atrial fibrillation; K44.9 Diaphragmatic hernia without obstruction or gangrene; K31.84 Gastroparesis; I25.10 Atherosclerotic heart disease of native coronary artery without angina pectoris; E03.9 Hypothyroidism, unspecified; J45.909 Unspecified asthma, uncomplicated; K58.9 Irritable bowel syndrome, unspecified; I12.9 Hypertensive chronic kidney disease with stage 1 through stage 4 chronic kidney disease, or unspecified chronic kidney disease; N18.3 Chronic kidney disease, stage 3 (moderate); M19.90 Unspecified osteoarthritis, unspecified site; M81.0 Age-related osteoporosis without current pathological fracture; Z90.49 Acquired absence of other specified parts of digestive tract; Z96.652 Presence of left artificial knee joint; Z90.721 Acquired absence of ovaries, unilateral; Z86.718 Personal history of other venous thrombosis and embolism; Z79.01 Long term (current) use of anticoagulants; Z98.61 Coronary angioplasty status; Z79.890 Hormone replacement therapy; Z91.040 Latex allergy status; Z79.82 Long term (current) use of aspirin; Z80.0 Family history of malignant neoplasm of digestive organs; Z82.49 Family history of ischemic heart disease and other diseases of the circulatory system